=== PATIENT | male | born 1950 | race Caucasian/White ===

== ENCOUNTER 2016-11-15 10:15 | Emergency (ER) | payer MEDICARE, OTHER ==
[~2016-11-15] VITALS: Ht 182.9 cm; Wt 58.6 kg
[~2016-11-15 10:15] MED LIST: ROBA750T3 PO; TYLCOD5S PO
[2016-11-15 10:25] VITALS: BP 134/81; PULSE 68; RESP 16; TEMP 98.3; O2SAT 97
[2016-11-15 10:30] VITALS: BP 134/81; PULSE 69; RESP 14; O2SAT 97
--- NOTE | 2016-11-15 10:42 | PD ---
HPI Chief Complaint: shortness of breath, chest pain Time Seen by Provider: 10:42 Travel History International Travel<30 days: No Contact w/Intl Traveler<30days: No Traveled to known affect area: No History of Present Illness HPI 66-year-old male came to the emergency room with history of right sided chest pain that is pleuritic in nature. Patient says he feels short of breath and every time he takes a deep breath the pain gets worse. The pain is sharp in nature. Patient has history of COPD and has oxygen at home. He says he's been using it continuously over past 2 weeks. No history of syncopal episode or radiation of the pain. His symptoms have been going on for past couple days. His vital signs were relatively stable. [facility] Past Medical History Narrative Medical List of his home medications reviewed from the nursing note. Immunizations Current: Yes Past Surgical History Other Surgery: Yes (ESOPHAGEAL STRICTS) Social History Alcohol Use: No Tobacco Use: Yes (2 PPD) Substance Use: Yes (MARIJUANA) Allergies-Medications (Allergen,Severity, Reaction): Coded Allergies: No Known Allergies (Unverified , 11/15/16) Comments No known drug allergies. Reported Meds & Prescriptions Reported Meds & Active Scripts Active Ventolin Hfa 18 GM Inh (Albuterol Sulfate) 90 Mcg/Act Aer 2 Puff INH Q4-6H PRN Prednisone 20 Mg Tab 20 Mg PO BID 5 Days Narrative Medication List of his own medications reviewed from the nursing note Review of Systems Except as stated in HPI: all other systems reviewed are Neg Physical Exam Narrative GENERAL: Awake, alert, anxious, moderate distress SKIN: Focused skin assessment warm/dry. HEAD: Atraumatic. Normocephalic. EYES: Pupils equal and round. No scleral icterus. No injection or drainage. ENT: No nasal bleeding or discharge. Mucous membranes pink and moist. NECK: Trachea midline. No JVD. CARDIOVASCULAR: Regular rate and rhythm. No murmur appreciated. RESPIRATORY: No accessory muscle use. Coarse crackles bilaterally GASTROINTESTINAL: Abdomen soft, non-tender, nondistended. Hepatic and splenic margins not palpable. MUSCULOSKELETAL: No obvious deformities. No clubbing. No cyanosis. No edema. NEUROLOGICAL: Awake and alert. No obvious cranial nerve deficits. Motor grossly within normal limits. Normal speech. PSYCHIATRIC: Appropriate mood and affect; insight and judgment normal. Data Data Last Documented VS Vital Signs Date Time Temp Pulse Resp B/P Pulse Ox O2 Delivery O2 Flow Rate FiO2 11/15/16 11:45 16 97 Nasal Cannula 2 11/15/16 11:45 88 133/82 11/15/16 10:25 98.3 Orders Complete Blood Count With Diff (11/15/16 10:46) Basic Metabolic Panel (Bmp) (11/15/16 10:46) B-Type Natriuretic Peptide (11/15/16 10:46) Prothrombin Time / Inr (Pt) (11/15/16 10:46) Magnesium (Mg) (11/15/16 10:46) Troponin I (11/15/16 10:46) Iv Access Insert/Monitor (11/15/16 10:46) Electrocardiogram (11/15/16 10:46) Ecg Monitoring (11/15/16 10:46) Oximetry (11/15/16 10:46) Oxygen Administration (11/15/16 10:46) Chest, Single Ap (11/15/16 10:46) Sodium Chloride 0.9% Flush (Ns Flush) (11/15/16 11:00) Methylprednisolone So Succ Inj (Solumedr (11/15/16 11:00) Albuterol-Ipratropium Neb (Duoneb Neb) (11/15/16 11:00) Ct Pulmonary Angiogram (11/15/16 ) Iohexol 350 Inj (Omnipaque 350 Inj) (11/15/16 12:41) Albuterol Neb (Albuterol Neb) (11/15/16 13:15) Labs Laboratory Tests Test 11/15/16 10:40 White Blood Count 11.1 TH/MM3 Red Blood Count 5.97 MIL/MM3 Hemoglobin 13.1 GM/DL Hematocrit 41.4 % Mean Corpuscular Volume 69.3 FL Mean Corpuscular Hemoglobin 21.9 PG Mean Corpuscular Hemoglobin 31.7 % Concent Red Cell Distribution Width 15.5 % Platelet Count 260 TH/MM3 Mean Platelet Volume 9.1 FL Neutrophils (%) (Auto) 76.7 % Lymphocytes (%) (Auto) 13.6 % Monocytes (%) (Auto) 7.4 % Eosinophils (%) (Auto) 2.1 % Basophils (%) (Auto) 0.2 % Neutrophils # (Auto) 8.5 TH/MM3 Lymphocytes # (Auto) 1.5 TH/MM3 Monocytes # (Auto) 0.8 TH/MM3 Eosinophils # (Auto) 0.2 TH/MM3 Basophils # (Auto) 0.0 TH/MM3 CBC Comment AUTO DIFF Differential Comment AUTO DIFF CONFIRMED Platelet Estimate NORMAL Platelet Morphology Comment ENLARGED Ovalocytes 1+ Acanthocytes OCC Prothrombin Time 11.7 SEC Prothromb Time International 1.1 RATIO Ratio Sodium Level 139 MEQ/L Potassium Level 5.0 MEQ/L Chloride Level 106 MEQ/L Carbon Dioxide Level 28.8 MEQ/L Anion Gap 4 MEQ/L Blood Urea Nitrogen 11 MG/DL Creatinine 0.76 MG/DL Estimat Glomerular Filtration 102 ML/MIN Rate Random Glucose 88 MG/DL Calcium Level 8.7 MG/DL Magnesium Level 2.1 MG/DL Troponin I LESS THAN 0.02 NG/ML B-Type Natriuretic Peptide 16 PG/ML [facility] Medical Decision Making Medical Screen Exam Complete: Yes Emergency Medical Condition: Yes Medical Record Reviewed: Yes Interpretation(s) Twelve-lead EKG was reviewed by me. Normal sinus rhythm, normal axis, nonspecific ST-T wave changes. Heart rate of 68 bpm. Differential Diagnosis PE, pneumonia, pneumothorax, COPD exacerbation Narrative Course 1:17 PM blood test results of back and within normal limit. I had ordered a CT pulmonary angiogram of the chest which does not show any PE. Extensive COPD. It also shows some lung nodule. Patient will be discharged home. He was given 3 duo nebs initially along with Solu-Medrol and Toradol. Get 2 albuterol nebulizers in addition before discharge. He still continues to smoke and he has been given advice not to smoke. Procedures EKG Prior to Arrival: No Diagnosis Primary Impression: COPD exacerbation Additional Impressions: Chest pain Qualified Code: R07.9 - Chest pain, unspecified type Lung nodule Needs smoking cessation education Referrals: Primary Care Physician 2 days Additional Instructions: Please return to the ER if the condition worsens or any other new concerns. Use the inhaler 2 puffs each time every 4 hours till symptoms subside. Take the medication as per the prescription direction. You have a lung nodule that requires a repeat CAT scan in 6 months. Follow-up with your primary care. Med/Other Pt SpecificInfo: Prescription(s) given Scripts Albuterol 18 GM Inh (Ventolin Hfa 18 GM Inh)90 Mcg/Act Aer2 Puff INH Q4-6H PRN ( SHORTNESS OF BREATH) #1 INHALER Ref 0 Prov:Derrick De La Cruz MD 11/15/16 Prednisone 20 Mg Tab20 Mg PO BID 5 Days Ref 0 Prov:Derrick De La Cruz MD 11/15/16 Disposition: 01 DISCHARGE HOME Condition: Stable Derrick De La Cruz MD November 15, 2016 10:42 Condition: Stable Derrick De La Cruz MD November 15, 2016 10:42
[2016-11-15] MEDS ORDERED: methylPREDNISolone SOD SUCC 125 MG/2 ML VIAL IVP ONE (11:00)
[2016-11-15] MEDS ORDERED: SODIUM CHLORIDE 0.9% FLUSH 10 ML FLUSH IVF PRN (11:00)
[2016-11-15] MEDS: RESP: ALBUTEROL 2.5 MG/IPRATROPIUM 0.5 MG NEB (SCH) INH ×2 (11:18→11:26)
--- NOTE | 2016-11-15 11:21 | RADRPT ---
EXAM DATE/TIME: 11/15/2016 11:03 [facility] COMPARISON: CHEST SINGLE AP, October 18, 2015, 4:01. INDICATIONS : Short of breath, no chest pain, smoker MEDICAL HISTORY : Chronic obstructive pulmonary disease. SURGICAL HISTORY : None. ENCOUNTER: Initial ACUITY: 1 day PAIN SCORE: 0/10 LOCATION: Bilateral chest FINDINGS: There is mild primarily central interstitial thickening, left worse than right which appears fairly s table. Slight scarring or atelectasis present at the left lung base. There is no evidence of airspace infiltrate or pleural effusion. Cardiac contours are grossly stable. Fairly severe hyperinflation is unchanged. CONCLUSION: Emphysema and chronic interstitial disease changes. No definite acute disease Jone Mcneil MD on November 15, 2016 at 11:18 Board Certified Radiologist. This report was verified electronically.
[2016-11-15 11:26] LABS: AUTOMATED NEUTROPHIL # 8.5 TH/MM3 (1.8-7.7); BASOPHIL % 0.2 % (0.0-2.0); EOSINOPHIL # 0.2 TH/MM3 (0-0.4); EOSINOPHIL % 2.1 % (0.0-4.0); HEMATOCRIT 41.4 % (39.0-51.0); LYMPH % 13.6 % (9.0-44.0); LYMPHOCYTE # 1.5 TH/MM3 (1.0-4.8); MEAN CELL VOLUME 69.3 FL (80.0-100.0); MEAN CORPUSCULAR HEMOGLOBIN 21.9 PG (27.0-34.0); MEAN CORPUSCULAR HGB CONC 31.7 % (32.0-36.0); MONO % 7.4 % (0.0-8.0); NEUT % 76.7 % (16.0-70.0); PLATELET COUNT 260 TH/MM3 (150-450); RED BLOOD COUNT 5.97 MIL/MM3 (4.50-5.90); RED CELL DISTRIBUTION WIDTH 15.5 % (11.6-17.2); WHITE BLOOD COUNT 11.1 TH/MM3 (4.0-11.0)
[2016-11-15 11:27] LABS: HEMO FLAGS AUTO DIFF
[2016-11-15 11:31] LABS: INTERNATIONAL NORMALIZED RATIO 1.1 RATIO; PROTHROMBIN TIME - PATIENT 11.7 SEC (9.8-11.6)
[2016-11-15 11:42] LABS: ANION GAP 4 MEQ/L (5-15); BICARBONATE 28.8 MEQ/L (21.0-32.0); BLOOD UREA NITROGEN 11 MG/DL (7-18); CHLORIDE 106 MEQ/L (98-107); GLOMERULAR FILTRATION RATE 102 ML/MIN (>89); MAGNESIUM 2.1 MG/DL (1.5-2.5); SODIUM (NA) 139 MEQ/L (136-145)
[2016-11-15 11:45] VITALS: BP 133/82; PULSE 88; RESP 14; O2SAT 97
[2016-11-15 12:04] LABS: ACANTHOCYTES OCC (NORMAL); OVALOCYTES 1+ (NORMAL); PLATELET ESTIMATE SMEAR NORMAL (NORMAL); PLATELET MORPHOLOGY ENLARGED (NORMAL); SCAN/DIFF AUTO DIFF CONFIRMED
[2016-11-15] MEDS ORDERED: IOHEXOL 350 MG/ML 10 ML VIAL (for RAD DIAG) IV ONE (12:41)
--- NOTE | 2016-11-15 13:08 | RADRPT ---
EXAM DATE/TIME: 11/15/2016 12:40 [facility] COMPARISON: No previous studies available for comparison. INDICATIONS : Left posterior chest pain for four days. IV CONTRAST: 50 cc Omnipaque 350 (iohexol) IV RADIATION DOSE: 12.03 CTDIvol (mGy) MEDICAL HISTORY : esophageal stricture SURGICAL HISTORY : None. ENCOUNTER: Initial ACUITY: 4 - 6 days PAIN SCALE: 7/10 LOCATION: Left chest TECHNIQUE: Volumetric scanning of the chest was performed using a pulmonary embolism protocol MIP images were re constructed. Using automated exposure control and adjustment of the mA and/or kV according to patien t size, radiation dose was kept as low as reasonably achievable to obtain optimal diagnostic quality images. FINDINGS: The examination is of good diagnostic quality. The pulmonary circulation is widely patent. No pulmona ry embolus is identified. The heart is normal in size. The ascending aorta is at the upper limits of normal in size at 3.4 cm. The arch is at the upper limits of normal in size a 2.8 cm. There is no pericardial pleural effusion. No significant hilar or mediastinal adenopathy is seen. Imaging through the pulmonary parenchyma demonstrates advanced COPD changes. There are 2 granulomatou s calcifications evident within the right middle lobe. The largest of these is seen inferiorly and me asures 5 mm. Examination of the left lung demonstrates a 7 mm soft tissue nodule in the posterior asp ect of the left lower lobe. This is indeterminate in appearance by CT imaging. Followup examination i n 6 months to insure stability would be warranted. The limited portions of upper abdomen visualized demonstrate a hiatal hernia but otherwise unremarkab le. CONCLUSION: 1. No pulmonary embolus is identified. 2. There are 2 calcified granuloma in the right middle lobe the largest measures 5 mm. 3. There is a 7 mm soft tissue nodule in the posterior aspect of the left lower lobe followup CT scan in 6 months to document stability of this is warranted. 4. Advanced COPD changes. Miki Kirkpatrick MD on November 15, 2016 at 12:55 Board Certified Radiologist. This report was verified electronically.
[2016-11-15] MEDS: RESP: ALBUTEROL 2.5 MG/3 ML NEB (SCH) INH ×2 (13:15→13:20)
[2016-11-15] MEDS ORDERED: PRED20 PO (13:20)
[2016-11-15] MEDS ORDERED: VENTAER INH (13:20)
--- NOTE | 2016-11-15 16:32 | EKG ---
Date Performed: 11/15/2016 Time Performed: 10:39:33 PTAGE: 66 years EKG: Sinus rhythm POSSIBLE RIGHT VENTRICULAR CONDUCTION DELAY BORDERLINE ECG NO PREVIOUS TRACING DOCTOR: Marcos Valles Interpretating Date/Time 11/15/2016 16:30:34
== END 2016-11-15 14:05 | disposition home or self-care (01) ==
LOC: NEPC 10:15
DX: J44.1 Chronic obstructive pulmonary disease with (acute) exacerbation (principal); R07.9 Chest pain, unspecified; R91.1 Solitary pulmonary nodule; F17.210 Nicotine dependence, cigarettes, uncomplicated; R06.02 Shortness of breath; Z79.899 Other long term (current) drug therapy
CPT/HCPCS: 71010; 71275; 80048; 83735; 83880; 84484; 85025; 85610; 93005; 99285; Q9967

== ENCOUNTER 2017-06-02 07:05 | Emergency (ER) | payer OTHER ==
[~2017-06-02] VITALS: Ht 182.9 cm; Wt 60.0 kg
[~2017-06-02 07:05] MED LIST changes: +PRED20 PO; -ROBA750T3 PO; -TYLCOD5S PO; +VENTAER INH
[2017-06-02 07:06] VITALS: BP 131/70; PULSE 95; RESP 20; TEMP 97.7; O2SAT 93
[2017-06-02 07:17] VITALS: BP 136/90; PULSE 93; RESP 30; TEMP 98.1; O2SAT 96
[2017-06-02] MEDS ORDERED: PRED10 PO (07:25)
[2017-06-02] MEDS ORDERED: ALBU.5I NEB (07:27)
[2017-06-02] MEDS ORDERED: SODIUM CHLOR 0.9% 1000 ML INJ 1,000 ML IV ONE (07:44)
[2017-06-02] MEDS ORDERED: SODIUM CHLORIDE 0.9% FLUSH 10 ML FLUSH IVF PRN (07:45)
[2017-06-02] MEDS ORDERED: ONDANSETRON HCL 4 MG/2 ML VIAL IVP ONE (07:45)
[2017-06-02 08:15] LABS: AUTOMATED NEUTROPHIL # 9.5 TH/MM3 (1.8-7.7); BASOPHIL # 0.1 TH/MM3 (0-0.2); BASOPHIL % 0.5 % (0.0-2.0); EOSINOPHIL # 0.2 TH/MM3 (0-0.4); EOSINOPHIL % 1.8 % (0.0-4.0); HEMO FLAGS DIFF FINAL; LYMPHOCYTE # 1.8 TH/MM3 (1.0-4.8); MEAN CELL VOLUME 70.2 FL (80.0-100.0); MEAN CORPUSCULAR HEMOGLOBIN 22.9 PG (27.0-34.0); MEAN CORPUSCULAR HGB CONC 32.6 % (32.0-36.0); MONO % 7.9 % (0.0-8.0); NEUT % 75.8 % (16.0-70.0); PLATELET COUNT 289 TH/MM3 (150-450); RED BLOOD COUNT 6.12 MIL/MM3 (4.50-5.90); RED CELL DISTRIBUTION WIDTH 15.3 % (11.6-17.2); WHITE BLOOD COUNT 12.5 TH/MM3 (4.0-11.0)
[2017-06-02 08:16] VITALS: O2SAT 96
[2017-06-02 08:24] LABS: PROTHROMBIN TIME - PATIENT 11.5 SEC (9.8-11.6)
[2017-06-02] MEDS ORDERED: RESP: ALBUTEROL 2.5 MG/IPRATROPIUM 0.5 MG NEB (SCH) NEB ONE (08:30)
[2017-06-02 08:42] LABS: ALT (GPT) 20 U/L (12-78); ANION GAP 9 MEQ/L (5-15); AST (GOT) 13 U/L (15-37); BICARBONATE 29.3 MEQ/L (21.0-32.0); BLOOD UREA NITROGEN 11 MG/DL (7-18); CHLORIDE 96 MEQ/L (98-107); GLOMERULAR FILTRATION RATE 94 ML/MIN (>89); POTASSIUM 3.7 MEQ/L (3.5-5.1); SODIUM (NA) 134 MEQ/L (136-145)
[2017-06-02 08:46] LABS: ALKALINE PHOSPHATASE 67 U/L (45-117); TOTAL BILIRUBIN ADULT 0.7 MG/DL (0.2-1.0)
[2017-06-02 08:56] VITALS: O2SAT 98
--- NOTE | 2017-06-02 09:45 | RADRPT ---
EXAM DATE/TIME: 06/02/2017 08:04 [facility] COMPARISON: No previous studies available for comparison. INDICATIONS : Right lateral rib pain from coughing, short of breath. MEDICAL HISTORY : Chronic obstructive pulmonary disease. SURGICAL HISTORY : None. ENCOUNTER: Initial ACUITY: 2 days PAIN SCORE: 10/10 LOCATION: Right ribs. FINDINGS: There are acute fractures involving the right ninth and probably the right 10th ribs laterally. No pn eumothorax is noted. Emphysematous changes are noted bilaterally. Degenerative changes and scoliosis of the thoracolumbar spine are noted. Mild compression deformity involving L2 is noted and is indeter minate in age. CONCLUSION: 1. Acute fractures involving the right ninth and probably the right 10th ribs laterally. 2. Mild compression deformity involving L2 of indeterminate age. 3. Degenerative changes and scoliosis of the thoracolumbar spine. 4. Emphysematous changes bilaterally. Jean Pierre Chavez MD on June 02, 2017 at 9:39 Board Certified Radiologist. This report was verified electronically.
[2017-06-02] MEDS ORDERED: HYDR-3516 PO (10:27)
--- NOTE | 2017-06-02 10:27 | PD ---
HPI Chief Complaint: Medical Clearance Time Seen by Provider: 07:34 Travel History International Travel<30 days: No Contact w/Intl Traveler<30days: No Traveled to known affect area: No History of Present Illness HPI Patient is a 66-year-old male comes in with multiple medical complaints. He says that he had a coughing fit Tuesday and he felt a pop on his right side. He says he figured he bruised his ribs like he did several months ago on the left. He says that he took some of his Robaxin to help with the pain, but then he started to feel dizzy and nauseous and chills. He says this is been going on for the past couple days, but overall today's feeling better. He is worried he is having a reaction to the Robaxin. He denies any chest pain. He says he has constant shortness of breath in the past week has had to use his oxygen 24 hours a day. He denies fever. He denies passing out. PFSH Past Medical History COPD: Yes Respiratory: Yes Immunizations Current: Yes Past Surgical History Other Surgery: Yes (ESOPHAGEAL STRICTS) Social History Alcohol Use: No Tobacco Use: Yes Substance Use: No Allergies-Medications (Allergen,Severity, Reaction): Coded Allergies: No Known Allergies (Unverified Adverse Reaction, Unknown, 06/02/17) Reported Meds & Prescriptions Reported Meds & Active Scripts Active Magnesium Citrate Liq (Magnesium Citrate) 300 Ml Liq 300 Ml PO ONCE Zofran Odt (Ondansetron Odt) 4 Mg Tab 4 Mg SL Q6HR PRN Hydrocodone-Acetaminophen 5-325 mg Tab 1 Tab PO Q4H PRN Ventolin Hfa 18 GM Inh (Albuterol Sulfate) 90 Mcg/Act Aer 2 Puff INH Q4-6H PRN Reported Albuterol Neb (Albuterol Sulfate) 2.5 Mg/0.5 Ml Neb 2.5 Mg NEB Q4HR NEB PRN Note: The Albuterol Sulfate Inhalation Solution is concentrated and must be diluted. Read complete instructions carefully before using. Prednisone 10 Mg Tab 10 Mg PO BID Review of Systems Except as stated in HPI: all other systems reviewed are Neg General / Constitutional: Positive: Chills, No: Fever Eyes: No: Blurred Vision HENT: Positive: Lightheadedness, No: Headaches Cardiovascular: No: Chest Pain or Discomfort Respiratory: Positive: Cough, Shortness of Breath Gastrointestinal: Positive: Nausea, No: Vomiting Genitourinary: No: Dysuria Musculoskeletal: No: Myalgias Skin: No Rash Neurologic: Positive: Dizziness, No: Weakness Physical Exam Narrative GENERAL: Awake and alert, in no acute distress. SKIN: Focused skin assessment warm/dry. HEAD: Atraumatic. Normocephalic. EYES: Pupils equal and round. No scleral icterus. Extraocular movements intact. ENT: Mucous membranes pink and moist. NECK: Trachea midline. No JVD. CARDIOVASCULAR: Regular rate and rhythm. No murmur appreciated. Tender to palpation of the right lateral chest wall. RESPIRATORY: No accessory muscle use. Clear to auscultation. Breath sounds equal bilaterally. GASTROINTESTINAL: Abdomen soft, non-tender, nondistended. MUSCULOSKELETAL: No obvious deformities. No clubbing. No cyanosis. No edema. NEUROLOGICAL: Awake and alert. No obvious cranial nerve deficits. Motor grossly within normal limits. Normal speech. PSYCHIATRIC: Appropriate mood and affect; insight and judgment normal. Data Data Last Documented VS Vital Signs Date Time Temp Pulse Resp B/P (MAP) Pulse Ox O2 Delivery O2 Flow Rate FiO2 06/02/17 11:02 06/02/17 08:56 98 Nasal Cannula 3.00 06/02/17 07:17 98.1 93 30 Orders Orders Electrocardiogram (06/02/17 07:44) Complete Blood Count With Diff (06/02/17 07:44) Comprehensive Metabolic Panel (06/02/17 07:44) Troponin I (06/02/17 07:44) Act Partial Throm Time (Ptt) (06/02/17 07:44) Prothrombin Time / Inr (Pt) (06/02/17 07:44) Ecg Monitoring (06/02/17 07:44) Iv Access Insert/Monitor (06/02/17 07:44) Oximetry (06/02/17 07:44) Ondansetron Inj (Zofran Inj) (06/02/17 07:45) Sodium Chloride 0.9% Flush (Ns Flush) (06/02/17 07:45) Sodium Chlor 0.9% 1000 Ml Inj (Ns 1000 M (06/02/17 07:44) Ribs, Uni (W/Exp Cxr-Min 3vw) (06/02/17 ) Albuterol-Ipratropium Neb (Duoneb Neb) (06/02/17 08:30) Resp Incentive Spirometry (06/02/17 ) Ed Discharge Order (06/02/17 10:43) Labs Laboratory Tests Test 06/02/17 07:45 White Blood Count 12.5 TH/MM3 Red Blood Count 6.12 MIL/MM3 Hemoglobin 14.0 GM/DL Hematocrit 43.0 % Mean Corpuscular Volume 70.2 FL Mean Corpuscular Hemoglobin 22.9 PG Mean Corpuscular Hemoglobin Concent 32.6 % Red Cell Distribution Width 15.3 % Platelet Count 289 TH/MM3 Mean Platelet Volume 8.8 FL Neutrophils (%) (Auto) 75.8 % Lymphocytes (%) (Auto) 14.0 % Monocytes (%) (Auto) 7.9 % Eosinophils (%) (Auto) 1.8 % Basophils (%) (Auto) 0.5 % Neutrophils # (Auto) 9.5 TH/MM3 Lymphocytes # (Auto) 1.8 TH/MM3 Monocytes # (Auto) 1.0 TH/MM3 Eosinophils # (Auto) 0.2 TH/MM3 Basophils # (Auto) 0.1 TH/MM3 CBC Comment DIFF FINAL Differential Comment Prothrombin Time 11.5 SEC Prothromb Time International Ratio 1.0 RATIO Activated Partial Thromboplast Time 28.0 SEC Blood Urea Nitrogen 11 MG/DL Creatinine 0.82 MG/DL Random Glucose 100 MG/DL Total Protein 7.6 GM/DL Albumin 3.9 GM/DL Calcium Level 9.1 MG/DL Alkaline Phosphatase 67 U/L Aspartate Amino Transf (AST/SGOT) 13 U/L Alanine Aminotransferase (ALT/SGPT) 20 U/L Total Bilirubin 0.7 MG/DL Sodium Level 134 MEQ/L Potassium Level 3.7 MEQ/L Chloride Level 96 MEQ/L Carbon Dioxide Level 29.3 MEQ/L Anion Gap 9 MEQ/L Estimat Glomerular Filtration Rate 94 ML/MIN Troponin I LESS THAN 0.02 NG/ML MDM Medical Decision Making Medical Screen Exam Complete: Yes Emergency Medical Condition: Yes Medical Record Reviewed: Yes Interpretation(s) ECG shows normal sinus rhythm at 67. Incomplete right bundle-branch block. No ST elevation or depression. Differential Diagnosis Rib fracture versus pneumonia versus COPD exacerbation versus dehydration Narrative Course Patient is a 66-year-old male who comes in with multiple medical complaints. Exam shows tenderness to the right lateral chest wall. IV established, labs sent. Labs show no acute abnormalities. Chest x-ray shows fractures of his right ribs. Patient offered pain medicine, but declines this time. He'll be discharged with a prescription to take as needed. He is advised to ensure he is taking deep breaths. Given an incentive spirometer and instructed on how to use it. He was given IV fluids, Zofran, 1 DuoNeb here and reports feeling much better. He is advised follow-up with his primary care doctor. Advised to return to the ED as needed for any worsening symptoms. Last 24 hours Impressions Ribs X-Ray 06/02/17 0000 Signed Impressions: Service Date/Time: , June 02, 2017 08:04 - CONCLUSION: 1. Acute fractures involving the right ninth and probably the right 10th ribs laterally. 2. Mild compression deformity involving L2 of indeterminate age. 3. Degenerative changes and scoliosis of the thoracolumbar spine. 4. Emphysematous changes bilaterally. Jean Pierre Chavez MD Diagnosis Primary Impression: Rib fractures Qualified Codes: S22.41XA - Multiple fractures of ribs, right side, initial encounter for closed fracture Patient Instructions: General Instructions, Rib Fracture (ED) Additional Instructions: Take pain medicine as needed. Ensure you are taking deep breaths and use your incentive spirometer several times a day. Follow-up with her primary care doctor. Return to the ED as needed for any worsening symptoms. Scripts Magnesium Citrate Liq (Magnesium Citrate Liq) 300 Ml Liq 300 ML PO ONCE, #1 BOTTLE 0 Refills Prov: Marybeth Meade MD 06/02/17 Ondansetron Odt (Zofran Odt) 4 Mg Tab 4 MG SL Q6HR Y for Nausea/Vomiting, #12 TAB 0 Refills Prov: Marybeth Meade MD 06/02/17 Hydrocodone-Acetaminophen (Hydrocodone-Acetaminophen) 5-325 mg Tab 1 TAB PO Q4H Y for PAIN, #15 TAB 0 Refills Prov: Marybeth Meade MD 06/02/17 Disposition: 01 DISCHARGE HOME Condition: Stable Marybeth Meade MD Jun 02, 2017 10:27
[2017-06-02] MEDS ORDERED: MAGNSOL2 PO (10:35)
[2017-06-02] MEDS ORDERED: ZOFR4TAB3 SL (10:35)
--- NOTE | 2017-06-03 17:56 | EKG ---
Date Performed: 06/02/2017 Time Performed: 08:28:09 PTAGE: 66 years EKG: Sinus rhythm WITH SINUS ARRHYTHMIA INCOMPLETE RIGHT BUNDLE BRANCH BLOCK BORDERLINE ECG Since PREVIOUS TRACING , no significant change noted PREVIOUS TRACIN11/15/2016 10.39 DOCTOR: Thomas Eubanks Interpretating Date/Time 06/03/2017 17:55:50
== END 2017-06-02 12:05 | disposition home or self-care (01) ==
LOC: NEPE 07:05
DX: S22.41XA Multiple fractures of ribs, right side, initial encounter for closed fracture (principal); R42 Dizziness and giddiness; I49.8 Other specified cardiac arrhythmias; I45.10 Unspecified right bundle-branch block; R11.0 Nausea; M41.9 Scoliosis, unspecified; J44.9 Chronic obstructive pulmonary disease, unspecified; X58.XXXA Exposure to other specified factors, initial encounter; Z72.0 Tobacco use
CPT/HCPCS: 71101; 80053; 84484; 85025; 85610; 85730; 93005; 94664; 96361; 96374; 99285; J2405; J7030

== ENCOUNTER 2017-08-08 05:26 | Inpatient (IN) | payer OTHER, MEDICARE ==
[~2017-08-08] VITALS: Ht 182.9 cm; Wt 52.6 kg
[2017-08-08] VITALS (7 sets, daily range): BP systolic 100–145; BP diastolic 61–76; PULSE 85–111; RESP 17–48; TEMP 97.9–98.6; O2SAT 97–99
[~2017-08-08 05:26] MED LIST changes: +ALBU.5I NEB; +HYDR-3516 PO; +MAGNSOL2 PO; +PRED10 PO; -PRED20 PO; +ZOFR4TAB3 SL
--- NOTE | 2017-08-08 05:36 | PD ---
HPI Chief Complaint: sob Time Seen by Provider: 05:31 Travel History International Travel<30 days: No Contact w/Intl Traveler<30days: No Traveled to known affect area: No History of Present Illness HPI Patient comes in complaining of shortness of breath and wheezing which is not improving with his home oxygen. Patient is normally on 3 L nasal cannula at home as needed. Patient continues to be an active smoker. Shortness of breath has worsened over the past 2-3 hours however the patient has had shortness of breath for the past 2-3 days. Patient currently denies any fever/runny nose/n/v /d/abdpain/backpain/palpitations/.....alleviated with nebulizer treatments given by ems....rest of history limited due to clinical condition/severity of sob. all:nkda pmhx: esophag strictures and copd, on home oxygen and daily oral prednisone...patient denies ever been intubated. PFSH Past Medical History COPD: Yes Respiratory: Yes Immunizations Current: Yes Past Surgical History Other Surgery: Yes (ESOPHAGEAL STRICTS) Social History Alcohol Use: No Tobacco Use: Yes Substance Use: No Allergies-Medications (Allergen,Severity, Reaction): Coded Allergies: No Known Allergies (Unverified Adverse Reaction, Unknown, 06/02/17) Reported Meds & Prescriptions Reported Meds & Active Scripts Active Ventolin Hfa 18 GM Inh (Albuterol Sulfate) 90 Mcg/Act Aer 2 Puff INH Q4-6H PRN Reported Breo Ellipta Inh (Fluticasone/Vilanterol) 100-25 Mcg/Act Inh Unknown Dose INH DAILY Use daily at the same time. Albuterol Neb (Albuterol Sulfate) 2.5 Mg/0.5 Ml Neb 2.5 Mg NEB Q4HR NEB PRN Note: The Albuterol Sulfate Inhalation Solution is concentrated and must be diluted. Read complete instructions carefully before using. Prednisone 10 Mg Tab 10 Mg PO BID Review of Systems ROS Limitations: Clinical Condition Except as stated in HPI: all other systems reviewed are Neg General / Constitutional: No: Fever Eyes: No: Visual changes HENT: No: Headaches Cardiovascular: No: Chest Pain or Discomfort Respiratory: Positive: Cough, Shortness of Breath, Wheezing Gastrointestinal: No: Abdominal Pain Genitourinary: No: Dysuria Musculoskeletal: No: Pain Skin: No Rash Neurologic: No: Weakness Psychiatric: No: Depression Endocrine: No: Polydipsia Hematologic/Lymphatic: No: Easy Bruising Physical Exam Exam Limitations: Clinical Condition Narrative GENERAL: SKIN: Warm and dry. HEAD: Atraumatic. Normocephalic. EYES: Pupils equal and round. No scleral icterus. No injection or drainage. ENT: No nasal bleeding or discharge. Mucous membranes pink and moist. NECK: Trachea midline. No JVD. CARDIOVASCULAR: tachycardic rate and regular rhythm. RESPIRATORY: accessory muscle use. decreased tv, wheezes bilaterally, tripoding , 1 word dyspnea GASTROINTESTINAL: Abdomen soft, non-tender, nondistended. MUSCULOSKELETAL: Extremities without clubbing, cyanosis, or edema. No obvious deformities. NEUROLOGICAL: Awake and alert. No obvious cranial nerve deficits. Motor grossly within normal limits. Five out of 5 muscle strength in the arms and legs. Normal speech. PSYCHIATRIC: Appropriate mood and affect; insight and judgment normal. Data Data Last Documented VS Vital Signs Date Time Temp Pulse Resp B/P (MAP) Pulse Ox O2 Delivery O2 Flow Rate FiO2 08/08/17 05:40 98 Nasal Cannula 5.00 08/08/17 05:29 98.2 111 48 145/76 (99) Orders Orders Complete Blood Count With Diff (08/08/17 05:31) Comprehensive Metabolic Panel (08/08/17 05:31) B-Type Natriuretic Peptide (08/08/17 05:31) Act Partial Throm Time (Ptt) (08/08/17 05:31) Prothrombin Time / Inr (Pt) (08/08/17 05:31) Ckmb (Isoenzyme) Profile (08/08/17 05:31) Troponin I (08/08/17 05:31) Arterial Blood Gas (Abg) (08/08/17 05:31) Influenzae A/B Antigen (08/08/17 05:31) Iv Access Insert/Monitor (08/08/17 05:31) Electrocardiogram (08/08/17 05:31) Ecg Monitoring (08/08/17 05:31) Oximetry (08/08/17 05:31) Oxygen Administration (08/08/17 05:31) Chest, Single Ap (08/08/17 05:31) Albuterol Neb (Albuterol Neb) (08/08/17 05:45) Magnesium Sulfate 1 Gm Premix (Magnesium (08/08/17 05:45) Azithromycin Inj (Zithromax Inj) (08/08/17 05:45) Blood Culture (08/08/17 05:49) Labs Laboratory Tests Test 08/08/17 05:35 08/08/17 05:40 Blood Gas Puncture Site RT RADIAL Blood Gas Patient Temperature 98.6 Blood Gas HCO3 25 mmol/L Blood Gas Base Excess 0.2 mmol/L Blood Gas Oxygen Saturation 96 % Arterial Blood pH 7.36 Arterial Blood Partial Pressure CO2 45 mmHg Arterial Blood Partial Pressure O2 139 mmHG Arterial Blood Oxygen Content 18.2 Vol % Arterial Blood Carboxyhemoglobin 2.6 % Arterial Blood Methemoglobin 0.7 % Blood Gas Hemoglobin 13.4 G/DL Oxygen Delivery Device NASAL CANNULA Blood Gas Liter Flow 5 L/M MDM Medical Decision Making Medical Screen Exam Complete: Yes Emergency Medical Condition: Yes Medical Record Reviewed: Yes Differential Diagnosis copd exacer v pna v pleural effusion v ptx v anemia v atypical stemi v nonstemi Narrative Course neg flu test, cxr neg for pna/ptx/pleural effusion.... Critical Care Narrative CRITICAL CARE NOTE: With evaluation of the patient, labs, EKG, receipt of radiologic studies, administration of medications, reevaluation the patient and discussion of the patient with the admitting physicians, the total critical care time was [45] minutes. Time to perform other separately billable procedures was not included in the critical care time. Diagnosis Primary Impression: moderate to severe copd exacerbation with hypoxemia Admitting Information Admitting Physician Requests: Observation Frederick Gudino MD Aug 08, 2017 05:36
[2017-08-08] MEDS ORDERED: FLUT1INH INH (05:39)
[2017-08-08] MEDS ORDERED: MAGNESIUM SULFATE 1 GM PREMIX 100 ML IV ONE (05:45)
[2017-08-08] MEDS ORDERED: methylPREDNISolone SOD SUCC 125 MG/2 ML VIAL IV PUSH ONE (05:45)
[2017-08-08] MEDS ORDERED: AZITHROMYCIN INJ 500 MG in SODIUM CHLOR 0.9% 250 ML INJ 250 ML IV ONE (05:45)
[2017-08-08 05:58] LABS: AUTOMATED NEUTROPHIL # 4.7 TH/MM3 (1.8-7.7); BASOPHIL # 0.1 TH/MM3 (0-0.2); BASOPHIL % 0.8 % (0.0-2.0); EOSINOPHIL # 0.1 TH/MM3 (0-0.4); EOSINOPHIL % 1.4 % (0.0-4.0); HEMATOCRIT 39.9 % (39.0-51.0); LYMPH % 23.7 % (9.0-44.0); MEAN CELL VOLUME 69.9 FL (80.0-100.0); MEAN CORPUSCULAR HEMOGLOBIN 22.8 PG (27.0-34.0); MEAN CORPUSCULAR HGB CONC 32.6 % (32.0-36.0); MEAN PLATELET VOLUME 8.9 FL (7.0-11.0); MONO % 17.2 % (0.0-8.0); MONOCYTE # 1.4 TH/MM3 (0-0.9); NEUT % 56.9 % (16.0-70.0); PLATELET COUNT 288 TH/MM3 (150-450); RED BLOOD COUNT 5.71 MIL/MM3 (4.50-5.90); RED CELL DISTRIBUTION WIDTH 16.7 % (11.6-17.2); WHITE BLOOD COUNT 8.3 TH/MM3 (4.0-11.0)
[2017-08-08] MEDS: RESP: ALBUTEROL 2.5 MG/3 ML NEB (SCH) INH ×2 (05:59→06:00)
[2017-08-08 06:07] LABS: INTERNATIONAL NORMALIZED RATIO 1.1 RATIO; PROTHROMBIN TIME - PATIENT 11.5 SEC (9.8-11.6)
[2017-08-08 06:23] LABS: ALBUMIN 3.1 GM/DL (3.4-5.0); ALKALINE PHOSPHATASE 61 U/L (45-117); ALT (GPT) 20 U/L (12-78); AST (GOT) 29 U/L (15-37); BICARBONATE 24.9 MEQ/L (21.0-32.0); BLOOD UREA NITROGEN 13 MG/DL (7-18); CALCIUM 7.9 MG/DL (8.5-10.1); CHLORIDE 109 MEQ/L (98-107); CREATININE 0.71 MG/DL (0.60-1.30); GLOMERULAR FILTRATION RATE 111 ML/MIN (>89); GLUCOSE,RANDOM 91 MG/DL (74-106); SODIUM (NA) 140 MEQ/L (136-145); TOTAL BILIRUBIN ADULT 0.5 MG/DL (0.2-1.0); TOTAL PROTEIN 6.5 GM/DL (6.4-8.2); TROPONIN I LESS THAN 0.02 NG/ML (0.02-0.05)
--- NOTE | 2017-08-08 06:27 | RADRPT ---
EXAM DATE/TIME: 08/08/2017 05:50 [facility] COMPARISON: CHEST SINGLE AP, November 15, 2016, 11:03. INDICATIONS : Short of breath. MEDICAL HISTORY : Chronic obstructive pulmonary disease. SURGICAL HISTORY : None. ENCOUNTER: Initial ACUITY: 1 day PAIN SCORE: 0/10 LOCATION: Bilateral chest FINDINGS: Hyperaerated lungs similar to prior chest x-ray. The heart is normal in size. Central bronchopulmon og markings well delineated. No evidence of pneumothorax or infiltrate. CONCLUSION: No acute findings. Severe emphysema. A Fabrizio Fierro MD on August 08, 2017 at 6:23 Board Certified Radiologist. This report was verified electronically.
[2017-08-08] MEDS ORDERED: RESP: ALBUTEROL 2.5 MG/IPRATROPIUM 0.5 MG NEB (PRN) NEB (07:00)
[2017-08-08] MEDS ORDERED: ONDANSETRON HCL 4 MG/2 ML VIAL IVP PRN (07:00)
[2017-08-08] MEDS ORDERED: BISACODYL 10 MG SUPP RECTAL PRN (07:00)
[2017-08-08] MEDS ORDERED: SENNOSIDES 8.6 MG TAB PO PRN (07:00)
[2017-08-08] MEDS ORDERED: NALOXONE HCL 0.4 MG/ML AMP IV PUSH PRN (07:00)
[2017-08-08] MEDS ORDERED: ACETAMINOPHEN 325 MG TAB PO PRN (07:00)
[2017-08-08] MEDS ORDERED: MAGNESIUM HYDROXIDE SUSP 30 ML CUP PO PRN (07:00)
[2017-08-08] MEDS ORDERED: LACTULOSE SYRUP 20 GM/30 ML CUP PO PRN (07:00)
[2017-08-08] MEDS: HEPARIN SODIUM - SQ 10,000 UNITS/ML VIAL SQ SCH ×2 (08:03→14:57)
[2017-08-08] MEDS: SODIUM CHLORIDE 0.9% FLUSH 10 ML FLUSH IV FLUSH SCH ×2 (10:00→21:58)
[2017-08-08] MEDS: RESP: ALBUTEROL 2.5 MG/IPRATROPIUM 0.5 MG NEB (SCH) NEB ×3 (10:00→20:48)
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
[2017-08-08] MEDS: methylPREDNISolone SOD SUCC 40 MG/1 ML VIAL IV PUSH SCH ×2 (12:02→17:54)
[2017-08-08] MEDS ORDERED: IOHEXOL 350 MG/ML 10 ML VIAL (for RAD DIAG) IVCONTRAST ONE (19:33)
--- NOTE | 2017-08-08 19:43 | EKG ---
Date Performed: 08/08/2017 Time Performed: 06:21:29 PTAGE: 66 years EKG: Sinus rhythm POSSIBLE RIGHT ATRIAL ENLARGEMENT POSSIBLE LEFT ATRIAL ENLARGEMENT INCOMPLETE RIGHT BUNDLE BRANCH BL OCK BORDERLINE ECG PREVIOUS TRACING : 06/02/2017 08.28 Since previous tracing, no significant change noted DOCTOR: Palak Arreaga Interpretating Date/Time 08/08/2017 19:41:12
--- NOTE | 2017-08-08 19:57 | RADRPT ---
EXAM DATE/TIME: 08/08/2017 19:15 [facility] COMPARISON: CT PULMONARY ANGIOGRAM, November 15, 2016, 12:40. INDICATIONS : Abnormal prior CT, shortness of breath. IV CONTRAST: 65 cc Omnipaque 350 (iohexol) IV RADIATION DOSE: 7.61 CTDIvol (mGy) ; Patient positioning MEDICAL HISTORY : Chronic obstructive pulmonary disease. SURGICAL HISTORY : None. ENCOUNTER: Initial ACUITY: 1 day PAIN SCALE: 0/10 LOCATION: Bilateral chest TECHNIQUE: Volumetric scanning of the chest was performed using a pulmonary embolism protocol MIP images were re constructed. Using automated exposure control and adjustment of the mA and/or kV according to patien t size, radiation dose was kept as low as reasonably achievable to obtain optimal diagnostic quality images. DICOM format image data is available electronically for review and comparison. Follow-up recommendations for detected pulmonary nodules are based at a minimum on nodule size and pa tient risk factors according to Fleischner Society Guidelines. FINDINGS: No filling defects to suggest pulmonary embolus. No effusion or adenopathy. Underlying severe emphysema. Previous left lower lobe nodule has resolved. Stable calcified granuloma in the right middle lobe. No acute findings in the upper abdomen. CONCLUSION: 1. Negative for pulmonary embolus. 2. Severe emphysema. Conrad Phelps MD on August 08, 2017 at 19:50 Board Certified Radiologist. This report was verified electronically.
[2017-08-08] MEDS: guaiFENesin E.R. 600 MG TAB PO SCH (21:56)
[2017-08-09] VITALS (9 sets, daily range): BP systolic 91–137; BP diastolic 55–87; PULSE 72–92; RESP 18–22; TEMP 97.3–98.1; O2SAT 92–98
[2017-08-09] MEDS: SODIUM CHLORIDE 0.9% FLUSH 10 ML FLUSH IV FLUSH PRN ×2 (00:24→05:24)
[2017-08-09] MEDS: HEPARIN SODIUM - SQ 10,000 UNITS/ML VIAL SQ SCH ×4 (00:24→23:28)
[2017-08-09] MEDS: methylPREDNISolone SOD SUCC 40 MG/1 ML VIAL IV PUSH SCH ×5 (00:24→23:29)
[2017-08-09] MEDS: RESP: ALBUTEROL 2.5 MG/IPRATROPIUM 0.5 MG NEB (SCH) NEB ×4 (04:46→20:37)
[2017-08-09 08:55] LABS: HEMATOCRIT 39.8 % (39.0-51.0); HEMOGLOBIN 12.7 GM/DL (13.0-17.0); LYMPH % 4.7 % (9.0-44.0); LYMPHOCYTE # 0.4 TH/MM3 (1.0-4.8); MEAN CELL VOLUME 69.5 FL (80.0-100.0); MEAN CORPUSCULAR HEMOGLOBIN 22.2 PG (27.0-34.0); MEAN CORPUSCULAR HGB CONC 31.9 % (32.0-36.0); MEAN PLATELET VOLUME 8.5 FL (7.0-11.0); MONO % 4.7 % (0.0-8.0); MONOCYTE # 0.4 TH/MM3 (0-0.9); NEUT % 90.6 % (16.0-70.0); PLATELET COUNT 250 TH/MM3 (150-450); RED BLOOD COUNT 5.72 MIL/MM3 (4.50-5.90); RED CELL DISTRIBUTION WIDTH 16.4 % (11.6-17.2); WHITE BLOOD COUNT 8.8 TH/MM3 (4.0-11.0)
[2017-08-09] MEDS: guaiFENesin E.R. 600 MG TAB PO SCH ×2 (08:58→21:02)
[2017-08-09] MEDS: SODIUM CHLORIDE 0.9% FLUSH 10 ML FLUSH IV FLUSH SCH ×2 (08:59→21:03)
[2017-08-09 09:24] LABS: BICARBONATE 27.5 MEQ/L (21.0-32.0); CREATININE 0.94 MG/DL (0.60-1.30)
--- NOTE | 2017-08-09 14:17 | HHI.PR ---
Subjective Remarks Follow-up COPD exacerbation. Patient states that he feels worse now than when he came to the hospital. He has had increasing shortness of breath. Denies chest pain. Cough is nonproductive. He becomes extremely short of breath with any exertion. Objective Vitals Vital Signs Date Time Temp Pulse Resp B/P (MAP) Pulse Ox O2 Delivery O2 Flow Rate FiO2 08/09/17 11:49 98.1 91 20 120/66 (84) 94 08/09/17 09:31 92 Nasal Cannula 2.00 08/09/17 07:41 97.7 90 20 116/64 (81) 93 08/09/17 04:47 97 Nasal Cannula 3.00 08/09/17 04:40 97.3 72 19 115/67 (83) 93 08/09/17 00:00 97.5 79 18 91/55 (67) 94 08/08/17 20:40 98.2 86 17 112/74 (87) 97 08/08/17 16:00 98.6 86 19 112/68 (83) 97 08/08/17 15:36 97 Nasal Cannula 3.00 I/O 08/08/17 08/08/17 08/08/17 08/09/17 08/09/17 08/09/17 07:00 15:00 23:00 07:00 15:00 23:00 Intake Total 350 ml 240 ml Output Total 400 ml Balance 350 ml -160 ml Intake Oral 240 ml IV Total 350 ml Output Urine Total 400 ml Result Diagram: 08/09/17 0824 08/09/17 0824 Imaging Last Impressions Chest X-Ray 08/08/17 0531 Signed Impressions: Service Date/Time: Tuesday, August 08, 2017 05:50 - CONCLUSION: No acute findings. Severe emphysema. Israel Fierro MD CT Angiography 08/08/17 0000 Signed Impressions: Service Date/Time: Tuesday, August 08, 2017 19:15 - CONCLUSION: 1. Negative for pulmonary embolus. 2. Severe emphysema. Conrad Phelps MD Objective Remarks General: Thin male in no acute distress. Heart: Regular rate and rhythm. No murmur. Lungs: Breathing is somewhat labored. Breath sounds are diminished bilaterally. Mild expiratory wheezes bilaterally. Abdomen: Soft, nontender, nondistended. Extremities: No lower extremity edema. Psych: Alert and oriented. Procedures None Urinary Catheter: No Vascular Central Line Catheter: No A/P Problem List: (1) Tobacco abuse ICD Code: Z72.0 - Tobacco use (2) COPD exacerbation ICD Code: J44.1 - Chronic obstructive pulmonary disease with (acute) exacerbation Status: Acute (3) Lung nodule ICD Code: R91.1 - Solitary pulmonary nodule Status: Acute Assessment and Plan 1. Acute respiratory failure secondary to COPD exacerbation: Continue supplemental oxygen. Continue bronchodilators, IV steroids. Consult pulmonology. Sherryo Ellipta on hold. Repeat ABG. 2. Tobacco abuse: Counseled to quit smoking. States that he had cut down to about one pack per day prior to this hospitalization. Add nicotine patch. 3. Lung nodule: Not seen on repeat CT pulmonary angiogram. 4. DVT prophylaxis: Heparin. Wilmer Mackenzie MD Aug 09, 2017 14:16
[2017-08-09] MEDS: NICOTINE 7 MG/24 HR PATCH T-DERMAL SCH (15:59)
[2017-08-09] MEDS: LORazepam 0.5 MG TAB PO PRN (15:59)
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
[2017-08-10] VITALS (7 sets, daily range): BP systolic 109–146; BP diastolic 60–96; PULSE 81–106; RESP 18–20; TEMP 97.5–98.7; O2SAT 92–98
[2017-08-10] MEDS: RESP: ALBUTEROL 2.5 MG/IPRATROPIUM 0.5 MG NEB (SCH) NEB ×4 (02:51→21:15)
[2017-08-10] MEDS: methylPREDNISolone SOD SUCC 40 MG/1 ML VIAL IV PUSH SCH ×4 (06:00→23:28)
[2017-08-10] MEDS: HEPARIN SODIUM - SQ 10,000 UNITS/ML VIAL SQ SCH ×3 (06:00→23:28)
[2017-08-10] MEDS: REMOVE OLD PATCH T-DERMAL SCH (09:00)
[2017-08-10] MEDS: SODIUM CHLORIDE 0.9% FLUSH 10 ML FLUSH IV FLUSH SCH ×2 (09:00→21:13)
[2017-08-10] MEDS: NICOTINE 7 MG/24 HR PATCH T-DERMAL SCH (09:37)
[2017-08-10] MEDS: guaiFENesin E.R. 600 MG TAB PO SCH ×2 (09:37→21:13)
[2017-08-10] MEDS ORDERED: INFLUENZA VIRUS VACCINE (QUADRIVALENT) 0.5 ML SYR IM ONE (10:00)
[2017-08-10] MEDS ORDERED: PNEUMOCOCCAL POLYVALENT INJ 25 MCG/0.5 ML SYR IM ONE (10:00)
[2017-08-10] MEDS ORDERED: AZITHROMYCIN 250 MG TAB PO ONE (14:30)
--- NOTE | 2017-08-10 14:38 | HHI.PR ---
Subjective Remarks Follow-up COPD exacerbation. The patient states that he feels worse today. Any exertion makes him significantly short of breath. Objective Vitals Vital Signs Date Time Temp Pulse Resp B/P (MAP) Pulse Ox O2 Delivery O2 Flow Rate FiO2 08/10/17 12:00 97.7 89 18 119/96 (104) 98 08/10/17 10:59 Nasal Cannula 3.00 08/10/17 08:00 97.5 98 18 146/60 (88) 92 08/10/17 04:00 97.6 97 20 111/64 (80) 97 08/10/17 02:52 92 Nasal Cannula 2.00 08/10/17 00:00 98.7 81 18 133/86 (102) 98 08/09/17 19:57 97.8 92 20 137/87 (104) 96 08/09/17 16:03 97.9 86 22 131/67 (88) 98 08/09/17 15:12 94 Nasal Cannula 2.50 I/O 08/09/17 08/09/17 08/09/17 08/10/17 08/10/17 08/10/17 06:59 14:59 22:59 06:59 14:59 22:59 Intake Total 240 ml 120 ml Output Total 400 ml Balance -160 ml 120 ml Intake Oral 240 ml 120 ml Output Urine Total 400 ml # Voids 3 Result Diagram: 08/09/17 0824 08/09/17 0824 Imaging Last Impressions Chest X-Ray 08/08/17 0531 Signed Impressions: Service Date/Time: Tuesday, August 08, 2017 05:50 - CONCLUSION: No acute findings. Severe emphysema. A Fabrizio Fierro MD CT Angiography 08/08/17 0000 Signed Impressions: Service Date/Time: Tuesday, August 08, 2017 19:15 - CONCLUSION: 1. Negative for pulmonary embolus. 2. Severe emphysema. Conrad Phelps MD Objective Remarks General: Thin male in no acute distress. Heart: Regular rate and rhythm. No murmur. Lungs: Breathing is somewhat labored. Breath sounds are diminished bilaterally. Mild expiratory wheezes bilaterally. Abdomen: Soft, nontender, nondistended. Extremities: No lower extremity edema. Psych: Alert and oriented. Procedures None Urinary Catheter: No Vascular Central Line Catheter: No A/P Problem List: (1) Tobacco abuse ICD Code: Z72.0 - Tobacco use (2) COPD exacerbation ICD Code: J44.1 - Chronic obstructive pulmonary disease with (acute) exacerbation Status: Acute (3) Lung nodule ICD Code: R91.1 - Solitary pulmonary nodule Status: Acute Assessment and Plan 1. Acute respiratory failure secondary to COPD exacerbation: Continue supplemental oxygen. Continue bronchodilators, IV steroids. Appreciate pulmonology recommendations. Add azithromycin. Add theophylline. 2. Tobacco abuse: Counseled to quit smoking. States that he had cut down to about one pack per day prior to this hospitalization. Continue nicotine patch. 3. Lung nodule: Not seen on repeat CT pulmonary angiogram. 4. DVT prophylaxis: Heparin. Discharge Planning Pending clinical improvement. Wilmer Mackenzie MD Aug 10, 2017 14:38
[2017-08-10] MEDS: THEOPHYLLINE ER 24 HR 300 MG CAPCR PO SCH (16:46)
[2017-08-11] VITALS (9 sets, daily range): BP systolic 103–129; BP diastolic 53–88; PULSE 75–114; RESP 18–20; TEMP 97.5–98; O2SAT 93–98
[2017-08-11] MEDS: RESP: ALBUTEROL 2.5 MG/3 ML NEB (PRN) NEB ×3 (01:40→11:29)
[2017-08-11] MEDS: LORazepam 0.5 MG TAB PO PRN ×2 (01:47→11:48)
[2017-08-11] MEDS: RESP: ALBUTEROL 2.5 MG/IPRATROPIUM 0.5 MG NEB (SCH) NEB ×4 (03:13→21:32)
[2017-08-11] MEDS: methylPREDNISolone SOD SUCC 40 MG/1 ML VIAL IV PUSH SCH ×3 (05:09→17:13)
[2017-08-11] MEDS ORDERED: LORazepam 0.5 MG TAB PO ONE (05:30)
[2017-08-11] MEDS: HEPARIN SODIUM - SQ 10,000 UNITS/ML VIAL SQ SCH ×2 (06:06→14:44)
[2017-08-11 07:49] LABS: AUTOMATED NEUTROPHIL # 9.6 TH/MM3 (1.8-7.7); BASOPHIL % 0.1 % (0.0-2.0); HEMATOCRIT 39.6 % (39.0-51.0); HEMOGLOBIN 12.8 GM/DL (13.0-17.0); LYMPH % 2.9 % (9.0-44.0); LYMPHOCYTE # 0.3 TH/MM3 (1.0-4.8); MEAN CELL VOLUME 68.9 FL (80.0-100.0); MEAN CORPUSCULAR HEMOGLOBIN 22.2 PG (27.0-34.0); MEAN CORPUSCULAR HGB CONC 32.2 % (32.0-36.0); MEAN PLATELET VOLUME 8.9 FL (7.0-11.0); MONO % 6.8 % (0.0-8.0); MONOCYTE # 0.7 TH/MM3 (0-0.9); NEUT % 90.2 % (16.0-70.0); PLATELET COUNT 248 TH/MM3 (150-450); RED BLOOD COUNT 5.75 MIL/MM3 (4.50-5.90); RED CELL DISTRIBUTION WIDTH 16.2 % (11.6-17.2); WHITE BLOOD COUNT 10.6 TH/MM3 (4.0-11.0)
[2017-08-11 08:02] LABS: BICARBONATE 31.5 MEQ/L (21.0-32.0); CALCIUM 8.6 MG/DL (8.5-10.1); CREATININE 0.66 MG/DL (0.60-1.30)
[2017-08-11] MEDS: REMOVE OLD PATCH T-DERMAL SCH (09:00)
[2017-08-11] MEDS: SODIUM CHLORIDE 0.9% FLUSH 10 ML FLUSH IV FLUSH SCH ×2 (09:00→21:19)
[2017-08-11] MEDS: guaiFENesin E.R. 600 MG TAB PO SCH ×2 (09:05→21:19)
[2017-08-11] MEDS: THEOPHYLLINE ER 24 HR 300 MG CAPCR PO SCH (09:05)
[2017-08-11] MEDS: NICOTINE 7 MG/24 HR PATCH T-DERMAL SCH (09:05)
--- NOTE | 2017-08-11 14:30 | HHI.PR ---
Subjective Remarks Follow-up COPD exacerbation, anxiety. Patient states that he is feeling better today. The Ativan seems to be helping a little bit. Theophylline help yesterday , but the effects wore off and he had "a very bad night". Objective Vitals Vital Signs Date Time Temp Pulse Resp B/P (MAP) Pulse Ox O2 Delivery O2 Flow Rate FiO2 08/11/17 12:25 98.0 107 20 118/88 (98) 94 08/11/17 09:21 97 Nasal Cannula 3.50 08/11/17 08:40 97.5 105 18 126/76 (93) 98 08/11/17 05:29 97.7 75 18 119/73 (88) 97 08/11/17 01:43 94 Nasal Cannula 3.00 08/11/17 00:21 97.5 96 18 103/53 (70) 95 08/10/17 16:00 97.6 106 18 109/67 (81) 95 08/10/17 15:59 98 Nasal Cannula 2.50 I/O 08/10/17 08/10/17 08/10/17 08/11/17 08/11/17 08/11/17 07:00 15:00 23:00 07:00 15:00 23:00 Output Total 300 ml 300 ml Balance -300 ml -300 ml Output Urine Total 300 ml 300 ml Result Diagram: 08/11/17 0640 08/11/17 0640 Imaging Last Impressions Chest X-Ray 08/08/17 0531 Signed Impressions: Service Date/Time: Tuesday, August 08, 2017 05:50 - CONCLUSION: No acute findings. Severe emphysema. A Fabrizio Fierro MD CT Angiography 08/08/17 0000 Signed Impressions: Service Date/Time: Tuesday, August 08, 2017 19:15 - CONCLUSION: 1. Negative for pulmonary embolus. 2. Severe emphysema. Conrad Phelps MD Objective Remarks General: Thin male in no acute distress. Heart: Regular rate and rhythm. No murmur. Lungs: Breathing is somewhat labored. Breath sounds are diminished bilaterally, slightly better than yesterday. Mild expiratory wheezes bilaterally. Abdomen: Soft, nontender, nondistended. Extremities: No lower extremity edema. Psych: Alert and oriented. Procedures None Urinary Catheter: No Vascular Central Line Catheter: No A/P Problem List: (1) Tobacco abuse ICD Code: Z72.0 - Tobacco use (2) COPD exacerbation ICD Code: J44.1 - Chronic obstructive pulmonary disease with (acute) exacerbation Status: Acute (3) Lung nodule ICD Code: R91.1 - Solitary pulmonary nodule Status: Acute Assessment and Plan 1. Acute respiratory failure secondary to COPD exacerbation: Continue supplemental oxygen. Continue bronchodilators, IV steroids. Appreciate pulmonology recommendations. Continue azithromycin, theophylline. Slight improvement today. 2. Tobacco abuse: Counseled to quit smoking. States that he had cut down to about one pack per day prior to this hospitalization. Continue nicotine patch. 3. Lung nodule: Not seen on repeat CT pulmonary angiogram. 4. Anxiety: Continue lorazepam as needed. 5. DVT prophylaxis: Heparin. Discharge Planning Pending clinical improvement. Wilmer Mackenzie MD Aug 11, 2017 14:30
[2017-08-11] MEDS: AZITHROMYCIN 250 MG TAB PO SCH (14:44)
--- NOTE | 2017-08-11 16:48 | HHI.PR ---
Subjective Remarks alert still significant [place] Objective Vital Signs Date Time Temp Pulse Resp B/P (MAP) Pulse Ox O2 Delivery O2 Flow Rate FiO2 08/11/17 12:25 98.0 107 20 118/88 (98) 94 08/11/17 09:21 97 Nasal Cannula 3.50 08/11/17 08:40 97.5 105 18 126/76 (93) 98 08/11/17 05:29 97.7 75 18 119/73 (88) 97 08/11/17 01:43 94 Nasal Cannula 3.00 08/11/17 00:21 97.5 96 18 103/53 (70) 95 I/O 08/10/17 08/10/17 08/10/17 08/11/17 08/11/17 08/11/17 07:00 15:00 23:00 07:00 15:00 23:00 Output Total 300 ml 300 ml Balance -300 ml -300 ml Output Urine Total 300 ml 300 ml Result Diagram: 08/11/1740 08/11/17 0640 Objective Remarks GENERAL: SKIN: Warm and dry. HEAD: Atraumatic. Normocephalic. EYES: Pupils equal and round. No scleral icterus. No injection or drainage. ENT: No nasal bleeding or discharge. Mucous membranes pink and moist. NECK: Trachea midline. No JVD. CARDIOVASCULAR: Regular rate and rhythm. RESPIRATORY: No accessory muscle use. Clear to auscultation. Breath sounds equal bilaterally. GASTROINTESTINAL: Abdomen soft, non-tender, nondistended. Hepatic and splenic margins not palpable. MUSCULOSKELETAL: Extremities without clubbing, cyanosis, or edema. No obvious deformities. NEUROLOGICAL: Awake and alert. No obvious cranial nerve deficits. Motor grossly within normal limits. Five out of 5 muscle strength in the arms and legs. Normal speech. PSYCHIATRIC: Appropriate mood and affect; insight and judgment normal. Assessment and Plan Assessment and Plan COPD EX. ANXIETY PLAN O2 as needed bronchodilaters steroids start Buspar Check angelo level Jase Laguna MD Aug 11, 2017 16:48
[2017-08-11] MEDS: busPIRone HCL 10 MG TAB PO SCH (21:19)
[2017-08-12] VITALS (7 sets, daily range): BP systolic 101–132; BP diastolic 59–84; PULSE 88–101; RESP 18–22; TEMP 97.4–97.6; O2SAT 92–97
[2017-08-12] MEDS: methylPREDNISolone SOD SUCC 40 MG/1 ML VIAL IV PUSH SCH ×4 (00:43→18:15)
[2017-08-12] MEDS: HEPARIN SODIUM - SQ 10,000 UNITS/ML VIAL SQ SCH ×3 (00:44→15:36)
[2017-08-12] MEDS: RESP: ALBUTEROL 2.5 MG/IPRATROPIUM 0.5 MG NEB (SCH) NEB ×2 (02:40→10:01)
[2017-08-12] MEDS: THEOPHYLLINE ER 24 HR 300 MG CAPCR PO SCH (09:10)
[2017-08-12] MEDS: guaiFENesin E.R. 600 MG TAB PO SCH ×2 (09:10→21:12)
[2017-08-12] MEDS: NICOTINE 7 MG/24 HR PATCH T-DERMAL SCH (09:10)
[2017-08-12] MEDS: SODIUM CHLORIDE 0.9% FLUSH 10 ML FLUSH IV FLUSH SCH (09:12)
[2017-08-12] MEDS: REMOVE OLD PATCH T-DERMAL SCH (09:12)
[2017-08-12] MEDS: busPIRone HCL 10 MG TAB PO SCH ×3 (09:12→21:12)
--- NOTE | 2017-08-12 15:23 | HHI.PR ---
Subjective Remarks Follow up COPD exacerbation. The patient states that he feels better today than he did yesterday. He had a much better night last night. Anxiety is improving with addition of BuSpar. Objective Vitals Vital Signs Date Time Temp Pulse Resp B/P (MAP) Pulse Ox O2 Delivery O2 Flow Rate FiO2 08/12/17 12:34 97.6 94 18 132/81 (98) 95 08/12/17 10:08 94 Nasal Cannula 4.00 08/12/17 08:22 97.6 94 20 126/84 (98) 92 08/12/17 05:01 97.4 101 18 125/59 (81) 96 08/12/17 01:10 97.5 88 18 101/75 (84) 95 08/11/17 21:33 93 Nasal Cannula 4.00 08/11/17 21:13 97.7 102 18 115/68 (84) 93 08/11/17 17:14 97.8 114 18 129/82 (98) 94 I/O 08/11/17 08/11/17 08/11/17 08/12/17 08/12/17 08/12/17 07:00 15:00 23:00 07:00 15:00 23:00 Intake Total 720 ml Output Total 300 ml 300 ml 850 ml 175 ml Balance -300 ml -300 ml -130 ml -175 ml Intake Oral 720 ml Output Urine Total 300 ml 300 ml 850 ml 175 ml Result Diagram: 08/11/17 0640 08/11/17 0640 Imaging Last Impressions Chest X-Ray 08/08/17 0531 Signed Impressions: Service Date/Time: Tuesday, August 08, 2017 05:50 - CONCLUSION: No acute findings. Severe emphysema. A Fabrizio Fierro MD CT Angiography 08/08/17 0000 Signed Impressions: Service Date/Time: Tuesday, August 08, 2017 19:15 - CONCLUSION: 1. Negative for pulmonary embolus. 2. Severe emphysema. Conrad Phelps MD Objective Remarks General: Thin male in no acute distress. Heart: Regular rate and rhythm. No murmur. Lungs: Breathing is nonlabored. Mild expiratory wheezes bilaterally. Abdomen: Soft, nontender, nondistended. Extremities: No lower extremity edema. Psych: Alert and oriented. Procedures None Urinary Catheter: No Vascular Central Line Catheter: No A/P Problem List: (1) Tobacco abuse ICD Code: Z72.0 - Tobacco use (2) COPD exacerbation ICD Code: J44.1 - Chronic obstructive pulmonary disease with (acute) exacerbation Status: Acute (3) Lung nodule ICD Code: R91.1 - Solitary pulmonary nodule Status: Acute Assessment and Plan 1. Acute respiratory failure secondary to COPD exacerbation: Continue supplemental oxygen. Continue bronchodilators, IV steroids. Appreciate pulmonology recommendations. Continue azithromycin, theophylline. Improving clinically. 2. Tobacco abuse: Counseled to quit smoking. States that he had cut down to about one pack per day prior to this hospitalization. Continue nicotine patch. 3. Lung nodule: Not seen on repeat CT pulmonary angiogram. 4. Anxiety: Continue lorazepam as needed. Continue BuSpar. 5. DVT prophylaxis: Heparin. Discharge Planning Pending clinical improvement. Possible discharge home Tuesday or Tuesday. Wilmer Mackenzie MD Aug 12, 2017 15:23
[2017-08-12] MEDS: AZITHROMYCIN 250 MG TAB PO SCH (15:36)
[2017-08-12] MEDS: RESP: ALBUTEROL 2.5 MG/3 ML NEB (PRN) NEB ×2 (17:48→20:51)
[2017-08-13] VITALS (7 sets, daily range): BP systolic 102–137; BP diastolic 60–83; PULSE 83–106; RESP 18–20; TEMP 97.4–98.1; O2SAT 91–96
[2017-08-13] MEDS: HEPARIN SODIUM - SQ 10,000 UNITS/ML VIAL SQ SCH ×4 (00:06→23:03)
[2017-08-13] MEDS: methylPREDNISolone SOD SUCC 40 MG/1 ML VIAL IV PUSH SCH ×5 (00:06→23:04)
[2017-08-13] MEDS: SODIUM CHLORIDE 0.9% FLUSH 10 ML FLUSH IV FLUSH SCH ×3 (00:06→21:00)
[2017-08-13] MEDS: RESP: ALBUTEROL 2.5 MG/3 ML NEB (PRN) NEB ×2 (00:37→22:42)
[2017-08-13] MEDS: guaiFENesin E.R. 600 MG TAB PO SCH ×2 (08:26→21:42)
[2017-08-13] MEDS: busPIRone HCL 10 MG TAB PO SCH ×2 (08:27→21:42)
[2017-08-13] MEDS: REMOVE OLD PATCH T-DERMAL SCH (08:29)
[2017-08-13] MEDS: NICOTINE 7 MG/24 HR PATCH T-DERMAL SCH (08:29)
[2017-08-13] MEDS: THEOPHYLLINE ER 24 HR 300 MG CAPCR PO SCH (08:40)
[2017-08-13] MEDS: AZITHROMYCIN 250 MG TAB PO SCH (14:47)
--- NOTE | 2017-08-13 14:58 | HHI.PR ---
Subjective Remarks Follow up COPD exacerbation. The patient feels "much worse" today. He has increased dyspnea. Had back pain while sitting in the chair, improved with lying down in bed. Objective Vitals Vital Signs Date Time Temp Pulse Resp B/P (MAP) Pulse Ox O2 Delivery O2 Flow Rate FiO2 08/13/17 12:00 97.9 106 20 123/70 (87) 94 08/13/17 08:00 97.4 94 20 128/81 (97) 91 08/13/17 06:13 97.5 83 20 105/61 (76) 96 08/13/17 01:00 97.7 86 20 102/60 (74) 94 08/12/17 21:12 97.6 96 22 123/83 (96) 93 08/12/17 20:52 97 Nasal Cannula 3.50 I/O 08/12/17 08/12/17 08/12/17 08/13/17 08/13/17 08/13/17 07:00 15:00 23:00 07:00 15:00 23:00 Output Total 175 ml 300 ml Balance -175 ml -300 ml Output Urine Total 175 ml 300 ml # Voids 1 1 # Bowel Movements 1 Result Diagram: 08/11/17 0640 08/11/17 0640 Imaging Last Impressions Chest X-Ray 08/08/17 0531 Signed Impressions: Service Date/Time: Tuesday, August 08, 2017 05:50 - CONCLUSION: No acute findings. Severe emphysema. A Fabrizio Fierro MD CT Angiography 08/08/17 0000 Signed Impressions: Service Date/Time: Tuesday, August 08, 2017 19:15 - CONCLUSION: 1. Negative for pulmonary embolus. 2. Severe emphysema. Conrad Phelps MD Objective Remarks General: Thin male in no acute distress. Heart: Regular rate and rhythm. No murmur. Lungs: Breathing is nonlabored. Poor air entry. Mild expiratory wheezes bilaterally. Abdomen: Soft, nontender, nondistended. Extremities: No lower extremity edema. Psych: Alert and oriented. Procedures None Urinary Catheter: No Vascular Central Line Catheter: No A/P Problem List: (1) Tobacco abuse ICD Code: Z72.0 - Tobacco use (2) COPD exacerbation ICD Code: J44.1 - Chronic obstructive pulmonary disease with (acute) exacerbation Status: Acute (3) Lung nodule ICD Code: R91.1 - Solitary pulmonary nodule Status: Acute Assessment and Plan 1. Acute respiratory failure secondary to COPD exacerbation: Continue supplemental oxygen, bronchodilators, IV steroids. Appreciate pulmonology recommendations. Continue azithromycin, theophylline. 2. Tobacco abuse: Counseled to quit smoking. States that he had cut down to about one pack per day prior to this hospitalization. Continue nicotine patch. 3. Lung nodule: Not seen on repeat CT pulmonary angiogram. 4. Anxiety: Continue lorazepam as needed. Continue BuSpar. 5. DVT prophylaxis: Heparin. 6. Patient requesting hospice consult. He is not sure if he wants hospice at this point, but would like to discuss his options with them. Discharge Planning Pending clinical improvement. Wilmer Mackenzie MD Aug 13, 2017 14:58
[2017-08-13] MEDS: RESP: ALBUTEROL 2.5 MG/IPRATROPIUM 0.5 MG NEB (SCH) NEB (19:18)
[2017-08-14] VITALS (8 sets, daily range): BP systolic 110–140; BP diastolic 62–80; PULSE 83–105; RESP 18–25; TEMP 97–98.8; O2SAT 91–98
[2017-08-14] MEDS: RESP: ALBUTEROL 2.5 MG/3 ML NEB (PRN) NEB ×2 (05:12→20:12)
[2017-08-14] MEDS: methylPREDNISolone SOD SUCC 40 MG/1 ML VIAL IV PUSH SCH ×3 (05:53→20:31)
[2017-08-14] MEDS: HEPARIN SODIUM - SQ 10,000 UNITS/ML VIAL SQ SCH ×3 (05:54→23:00)
[2017-08-14 08:16] LABS: AUTOMATED NEUTROPHIL # 12.6 TH/MM3 (1.8-7.7); HEMATOCRIT 41.4 % (39.0-51.0); HEMOGLOBIN 13.4 GM/DL (13.0-17.0); LYMPH % 3.4 % (9.0-44.0); LYMPHOCYTE # 0.5 TH/MM3 (1.0-4.8); MEAN CELL VOLUME 68.7 FL (80.0-100.0); MEAN CORPUSCULAR HEMOGLOBIN 22.3 PG (27.0-34.0); MEAN CORPUSCULAR HGB CONC 32.4 % (32.0-36.0); MEAN PLATELET VOLUME 8.8 FL (7.0-11.0); MONO % 4.8 % (0.0-8.0); MONOCYTE # 0.7 TH/MM3 (0-0.9); NEUT % 91.8 % (16.0-70.0); PLATELET COUNT 270 TH/MM3 (150-450); RED BLOOD COUNT 6.02 MIL/MM3 (4.50-5.90); RED CELL DISTRIBUTION WIDTH 16.2 % (11.6-17.2); WHITE BLOOD COUNT 13.7 TH/MM3 (4.0-11.0)
[2017-08-14 08:35] LABS: BICARBONATE 29.1 MEQ/L (21.0-32.0); CALCIUM 8.8 MG/DL (8.5-10.1); CREATININE 0.8 MG/DL (0.60-1.30)
[2017-08-14] MEDS: guaiFENesin E.R. 600 MG TAB PO SCH ×2 (08:56→20:32)
[2017-08-14] MEDS: busPIRone HCL 10 MG TAB PO SCH (08:56)
[2017-08-14] MEDS: REMOVE OLD PATCH T-DERMAL SCH (08:57)
[2017-08-14] MEDS: NICOTINE 7 MG/24 HR PATCH T-DERMAL SCH (08:57)
[2017-08-14] MEDS: THEOPHYLLINE ELIXIR 80 MG/15 ML CUP PO SCH (09:00)
[2017-08-14] MEDS: SODIUM CHLORIDE 0.9% FLUSH 10 ML FLUSH IV FLUSH SCH ×2 (09:01→12:41)
[2017-08-14] MEDS: RESP: ALBUTEROL 2.5 MG/IPRATROPIUM 0.5 MG NEB (SCH) NEB ×2 (09:05→11:24)
[2017-08-14] MEDS: [UNRECOGNIZED DRUG - REMARK] PO SCH ×2 (12:42→21:40)
--- NOTE | 2017-08-14 14:59 | HHI.PR ---
Subjective Remarks Follow-up COPD exacerbation. The patient states that he feels better than he did yesterday, but still has significant shortness of breath with any activity. This includes talking. I had a lengthy conversation with the patient and his daughter, who was available via [employer]. Objective Vitals Vital Signs Date Time Temp Pulse Resp B/P (MAP) Pulse Ox O2 Delivery O2 Flow Rate FiO2 08/14/17 12:00 97.8 83 20 121/62 (81) 91 08/14/17 09:06 91 Nasal Cannula 3.00 08/14/17 08:00 97.7 95 20 133/77 (95) 91 08/14/17 04:30 97.0 100 25 139/78 (98) 92 08/14/17 00:30 98.8 98 18 110/69 (83) 97 08/13/17 20:30 98.1 100 18 111/67 (82) 96 08/13/17 19:19 92 Nasal Cannula 4.00 08/13/17 16:00 98.0 95 20 137/83 (101) 93 I/O 08/13/17 08/13/17 08/13/17 08/14/17 08/14/17 08/14/17 07:00 15:00 23:00 07:00 15:00 23:00 Intake Total 1860 ml 1500 ml Output Total 300 ml 800 ml Balance -300 ml 1860 ml 700 ml Intake Oral 1860 ml 1500 ml Output Urine Total 300 ml 800 ml # Voids 1 8 # Bowel Movements 0 0 Result Diagram: 08/14/17 0742 08/14/17 0742 Imaging Last Impressions Chest X-Ray 08/08/17 0531 Signed Impressions: Service Date/Time: Tuesday, August 08, 2017 05:50 - CONCLUSION: No acute findings. Severe emphysema. Israel Fierro MD CT Angiography 08/08/17 0000 Signed Impressions: Service Date/Time: Tuesday, August 08, 2017 19:15 - CONCLUSION: 1. Negative for pulmonary embolus. 2. Severe emphysema. Conrad Phelps MD Objective Remarks General: Thin male in no acute distress. Heart: Regular rate and rhythm. No murmur. Lungs: Breathing is mildly labored. Poor air entry. Mild expiratory wheezes bilaterally. Abdomen: Soft, nontender, nondistended. Extremities: No lower extremity edema. Psych: Alert and oriented. Procedures None Urinary Catheter: No Vascular Central Line Catheter: No A/P Problem List: (1) Tobacco abuse ICD Code: Z72.0 - Tobacco use (2) COPD exacerbation ICD Code: J44.1 - Chronic obstructive pulmonary disease with (acute) exacerbation Status: Acute (3) Lung nodule ICD Code: R91.1 - Solitary pulmonary nodule Status: Acute Assessment and Plan 1. Acute respiratory failure secondary to COPD exacerbation: Continue supplemental oxygen, bronchodilators, IV steroids. Appreciate pulmonology recommendations. Continue azithromycin, theophylline. 2. Tobacco abuse: Counseled to quit smoking. States that he had cut down to about one pack per day prior to this hospitalization. Continue nicotine patch. 3. Lung nodule: Not seen on repeat CT pulmonary angiogram. 4. Anxiety, depression: Continue lorazepam as needed. Increase BuSpar. 5. DVT prophylaxis: Heparin. 6. Hospice consulted. Patient thinks he wants to go with comfort care measures, possibly discharge to hospice care center for symptom control, but wants to discuss this with his daughter (who will be arriving here on Tuesday). I had a lengthy conversation with the patient and his daughter, who was available via [employer]. The patient was very clear that he would not want CPR or intubation. I confirmed DO NOT RESUSCITATE status with the patient and his daughter. Discharge Planning Pending clinical improvement. Wilmer Mackenzie MD Aug 14, 2017 14:59
[2017-08-14] MEDS: AZITHROMYCIN 250 MG TAB PO SCH (16:08)
[2017-08-14] MEDS ORDERED: MORPHINE SULFATE 2 MG/ML INJ IV ONE (18:45)
[2017-08-14] MEDS: busPIRone HCL 5 MG TAB PO SCH (20:31)
[2017-08-15] VITALS (8 sets, daily range): BP systolic 107–134; BP diastolic 61–99; PULSE 87–110; RESP 17–25; TEMP 97.1–98.7; O2SAT 90–99
[2017-08-15] MEDS: RESP: ALBUTEROL 2.5 MG/IPRATROPIUM 0.5 MG NEB (SCH) NEB ×5 (01:00→20:18)
[2017-08-15] MEDS: [UNRECOGNIZED DRUG - REMARK] PO SCH ×3 (04:00→22:57)
[2017-08-15] MEDS: RESP: ALBUTEROL 2.5 MG/3 ML NEB (PRN) NEB ×3 (06:27→14:20)
[2017-08-15] MEDS: HEPARIN SODIUM - SQ 10,000 UNITS/ML VIAL SQ SCH ×3 (06:56→22:54)
[2017-08-15] MEDS: REMOVE OLD PATCH T-DERMAL SCH (09:00)
[2017-08-15] MEDS: guaiFENesin E.R. 600 MG TAB PO SCH ×2 (09:02→22:54)
[2017-08-15] MEDS: methylPREDNISolone SOD SUCC 40 MG/1 ML VIAL IV PUSH SCH (09:02)
[2017-08-15] MEDS: SODIUM CHLORIDE 0.9% FLUSH 10 ML FLUSH IV FLUSH SCH ×2 (09:02→22:54)
[2017-08-15] MEDS: busPIRone HCL 5 MG TAB PO SCH ×2 (09:02→22:53)
[2017-08-15] MEDS: NICOTINE 7 MG/24 HR PATCH T-DERMAL SCH (09:04)
--- NOTE | 2017-08-15 10:36 | HHI.PR ---
Subjective Remarks Follow-up COPD exacerbation. The patient states that he feels much worse today. He states "I'm not going to make it until Tuesday". He wants to talk to hospice again today. Continues to have significant dyspnea despite receiving albuterol nebulizer treatments every 2 hours. Objective Vitals Vital Signs Date Time Temp Pulse Resp B/P (MAP) Pulse Ox O2 Delivery O2 Flow Rate FiO2 08/15/17 08:05 94 Nasal Cannula 4.00 08/15/17 07:55 98.2 91 20 131/61 (84) 94 08/15/17 04:30 98.1 88 24 111/76 (88) 90 08/15/17 00:20 97.1 106 25 134/99 (111) 97 08/14/17 20:30 98.1 90 24 140/80 (100) 97 08/14/17 20:16 98 Nasal Cannula 4.00 08/14/17 16:00 98.0 105 20 139/68 (91) 95 08/14/17 12:00 97.8 83 20 121/62 (81) 91 I/O 08/14/17 08/14/17 08/14/17 08/15/17 08/15/17 08/15/17 07:00 15:00 23:00 07:00 15:00 23:00 Intake Total 1500 ml 1280 ml 1500 ml Output Total 800 ml 400 ml 1500 ml Balance 700 ml 880 ml 0 ml Intake Oral 1500 ml 1280 ml 1500 ml Output Urine Total 800 ml 400 ml 1500 ml # Voids 6 # Bowel Movements 0 0 0 Result Diagram: 08/14/17 0742 08/14/17 0742 Imaging Last Impressions Chest X-Ray 08/08/17 0531 Signed Impressions: Service Date/Time: Tuesday, August 08, 2017 05:50 - CONCLUSION: No acute findings. Severe emphysema. A Fabrizio Fierro MD CT Angiography 08/08/17 0000 Signed Impressions: Service Date/Time: Tuesday, August 08, 2017 19:15 - CONCLUSION: 1. Negative for pulmonary embolus. 2. Severe emphysema. Conrad Phelps MD Objective Remarks General: Thin male. Appears uncomfortable. Heart: Regular rate and rhythm. No murmur. Lungs: Breathing is somewhat labored. Poor air entry. Diminished breath sounds bilaterally. Abdomen: Soft, nontender, nondistended. Extremities: No lower extremity edema. Psych: Alert and oriented. Procedures None Urinary Catheter: No Vascular Central Line Catheter: No A/P Problem List: (1) Tobacco abuse ICD Code: Z72.0 - Tobacco use (2) COPD exacerbation ICD Code: J44.1 - Chronic obstructive pulmonary disease with (acute) exacerbation Status: Acute (3) Lung nodule ICD Code: R91.1 - Solitary pulmonary nodule Status: Acute Assessment and Plan 1. Acute respiratory failure secondary to COPD exacerbation: Continue supplemental oxygen. Increase frequency of DuoNeb. Continue albuterol nebulizers as needed. Increase Solu-Medrol. Appreciate pulmonology recommendations. Continue azithromycin, theophylline. Oxygen saturation is good , but symptoms are worsening. 2. Tobacco abuse: Counseled to quit smoking. States that he had cut down to about one pack per day prior to this hospitalization. Continue nicotine patch. 3. Lung nodule: Not seen on repeat CT pulmonary angiogram. 4. Anxiety, depression: Continue lorazepam as needed. Increase BuSpar. 5. DVT prophylaxis: Heparin. 6. Hospice consulted. Patient thinks he wants to go with comfort care measures, possibly discharge to hospice care center for symptom control, but wanted to discuss this with his daughter (who will be arriving here on Tuesday). He now says that he does not feel like he will make it until Tuesday if his symptoms don't improve. He would like to speak with hospice again today. Palliative care consult also requested for assistance with symptom management and clarification of goals of care. 7. CODE STATUS: DO NOT RESUSCITATE. Discharge Planning Pending clinical improvement. Wilmer Mackenzie MD Aug 15, 2017 10:36
[2017-08-15 11:15] LABS: AUTOMATED NEUTROPHIL # 12.1 TH/MM3 (1.8-7.7); BASOPHIL # 0.1 TH/MM3 (0-0.2); BASOPHIL % 0.4 % (0.0-2.0); HEMATOCRIT 42.1 % (39.0-51.0); HEMOGLOBIN 13.6 GM/DL (13.0-17.0); LYMPH % 3.5 % (9.0-44.0); LYMPHOCYTE # 0.5 TH/MM3 (1.0-4.8); MEAN CELL VOLUME 69.1 FL (80.0-100.0); MEAN CORPUSCULAR HEMOGLOBIN 22.3 PG (27.0-34.0); MEAN CORPUSCULAR HGB CONC 32.2 % (32.0-36.0); MEAN PLATELET VOLUME 9.2 FL (7.0-11.0); MONO % 9.4 % (0.0-8.0); MONOCYTE # 1.3 TH/MM3 (0-0.9); NEUT % 86.7 % (16.0-70.0); PLATELET COUNT 299 TH/MM3 (150-450); RED CELL DISTRIBUTION WIDTH 15.7 % (11.6-17.2); WHITE BLOOD COUNT 13.9 TH/MM3 (4.0-11.0)
[2017-08-15] MEDS: LORazepam 0.5 MG TAB PO PRN (12:41)
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
[2017-08-15] MEDS ORDERED: LORazepam 2 MG/ML VIAL IV PUSH ONE (14:00)
[2017-08-15] MEDS: PANTOPRAZOLE SOD 40 MG DELAYED RELEASE TAB PO SCH (14:36)
[2017-08-15] MEDS: MORPHINE SULFATE 2 MG/ML INJ IV PUSH PRN (14:37)
[2017-08-15] MEDS: methylPREDNISolone SOD SUCC 125 MG/2 ML VIAL IV PUSH SCH ×2 (15:52→22:54)
[2017-08-15] MEDS: AZITHROMYCIN 250 MG TAB PO SCH (15:57)
[2017-08-15] MEDS ORDERED: LORazepam 2 MG/ML VIAL IV PUSH PRN (16:00)
--- NOTE | 2017-08-15 16:28 | HHI.PR ---
Subjective Remarks alert still significant [place] Objective Vital Signs Date Time Temp Pulse Resp B/P (MAP) Pulse Ox O2 Delivery O2 Flow Rate FiO2 08/15/17 15:58 98.7 110 20 107/76 (86) 99 08/15/17 12:10 97.9 87 20 124/61 (82) 94 08/15/17 08:05 94 Nasal Cannula 4.00 08/15/17 07:55 98.2 91 20 131/61 (84) 94 08/15/17 04:30 98.1 88 24 111/76 (88) 90 08/15/17 00:20 97.1 106 25 134/99 (111) 97 08/14/17 20:30 98.1 90 24 140/80 (100) 97 08/14/17 20:16 98 Nasal Cannula 4.00 I/O 08/14/17 08/14/17 08/14/17 08/15/17 08/15/17 08/15/17 07:00 15:00 23:00 07:00 15:00 23:00 Intake Total 1500 ml 1280 ml 1500 ml Output Total 800 ml 400 ml 1500 ml Balance 700 ml 880 ml 0 ml Intake Oral 1500 ml 1280 ml 1500 ml Output Urine Total 800 ml 400 ml 1500 ml # Voids 6 # Bowel Movements 0 0 0 Result Diagram: 08/15/17 1020 08/14/17 0742 Objective Remarks GENERAL: SKIN: Warm and dry. HEAD: Atraumatic. Normocephalic. EYES: Pupils equal and round. No scleral icterus. No injection or drainage. ENT: No nasal bleeding or discharge. Mucous membranes pink and moist. NECK: Trachea midline. No JVD. CARDIOVASCULAR: Regular rate and rhythm. RESPIRATORY: No accessory muscle use. Clear to auscultation. Breath sounds equal bilaterally. GASTROINTESTINAL: Abdomen soft, non-tender, nondistended. Hepatic and splenic margins not palpable. MUSCULOSKELETAL: Extremities without clubbing, cyanosis, or edema. No obvious deformities. NEUROLOGICAL: Awake and alert. No obvious cranial nerve deficits. Motor grossly within normal limits. Five out of 5 muscle strength in the arms and legs. Normal speech. PSYCHIATRIC: Appropriate mood and affect; insight and judgment normal. Assessment and Plan Assessment and Plan COPD EX. ANXIETY PLAN O2 as needed bronchodilaters steroids start Buspar palliative care involved Jase Laguna MD Aug 15, 2017 16:28
[2017-08-16] VITALS (8 sets, daily range): BP systolic 105–151; BP diastolic 68–93; PULSE 85–118; RESP 16–19; TEMP 97–98.5; O2SAT 93–99
[2017-08-16] MEDS: LORazepam 0.5 MG TAB PO PRN ×4 (03:33→23:32)
[2017-08-16] MEDS: methylPREDNISolone SOD SUCC 125 MG/2 ML VIAL IV PUSH SCH ×4 (03:34→21:15)
[2017-08-16] MEDS: [UNRECOGNIZED DRUG - REMARK] PO SCH ×3 (03:35→20:00)
[2017-08-16] MEDS: MORPHINE SULFATE 4 MG/ML INJ IV PUSH PRN ×2 (05:28→08:46)
[2017-08-16] MEDS: HEPARIN SODIUM - SQ 10,000 UNITS/ML VIAL SQ SCH ×3 (06:13→21:15)
[2017-08-16] MEDS: RESP: ALBUTEROL 2.5 MG/IPRATROPIUM 0.5 MG NEB (SCH) NEB ×4 (08:00→19:52)
[2017-08-16] MEDS: busPIRone HCL 5 MG TAB PO SCH ×2 (08:45→21:15)
[2017-08-16] MEDS: REMOVE OLD PATCH T-DERMAL SCH (08:46)
[2017-08-16] MEDS: guaiFENesin E.R. 600 MG TAB PO SCH ×2 (08:46→21:15)
[2017-08-16] MEDS: PANTOPRAZOLE SOD 40 MG DELAYED RELEASE TAB PO SCH (08:46)
[2017-08-16] MEDS: NICOTINE 7 MG/24 HR PATCH T-DERMAL SCH (08:46)
[2017-08-16] MEDS: SODIUM CHLORIDE 0.9% FLUSH 10 ML FLUSH IV FLUSH SCH ×2 (08:47→21:18)
[2017-08-16] MEDS: MORPHINE SULFATE 2 MG/ML INJ IV PUSH PRN ×5 (12:39→23:31)
--- NOTE | 2017-08-16 13:49 | HHI.PR ---
Subjective Remarks Follow-up COPD exacerbation/COPD with respiratory failure 08/16/17-patient seen and examined still with shortness of breath as well as increased anxiety. Objective Vitals Vital Signs Date Time Temp Pulse Resp B/P (MAP) Pulse Ox O2 Delivery O2 Flow Rate FiO2 08/16/17 13:02 98.5 85 16 145/90 (108) 94 08/16/17 08:30 97.0 107 16 151/90 (110) 93 08/16/17 08:08 95 Nasal Cannula 4.00 08/16/17 05:41 18 08/16/17 05:23 97.9 102 19 132/81 (98) 95 08/16/17 00:20 97.7 101 18 126/68 (87) 99 08/15/17 20:20 98.0 94 17 126/61 (82) 97 08/15/17 20:18 97 Nasal Cannula 4.00 08/15/17 15:58 98.7 110 20 107/76 (86) 99 I/O 08/15/17 08/15/17 08/15/17 08/16/17 08/16/17 08/16/17 07:00 15:00 23:00 07:00 15:00 23:00 Intake Total 1500 ml 240 ml Output Total 1500 ml 200 ml Balance 0 ml -200 ml 240 ml Intake Oral 1500 ml 240 ml Output Urine Total 1500 ml 200 ml # Voids 1 2 # Bowel Movements 0 Result Diagram: 08/15/17 1020 08/14/17 0742 Imaging Last Impressions Chest X-Ray 08/08/17 0531 Signed Impressions: Service Date/Time: Tuesday, August 08, 2017 05:50 - CONCLUSION: No acute findings. Severe emphysema. A Fabrizio Fierro MD CT Angiography 08/08/17 0000 Signed Impressions: Service Date/Time: Tuesday, August 08, 2017 19:15 - CONCLUSION: 1. Negative for pulmonary embolus. 2. Severe emphysema. Conrad Phelps MD Objective Remarks GENERAL: NAD however very anxious SKIN: Warm and dry. HEAD: Normocephalic. EYES: No scleral icterus. No injection or drainage. NECK: Supple, trachea midline. No JVD or lymphadenopathy. CARDIOVASCULAR: Regular rate and rhythm without murmurs, gallops, or rubs. RESPIRATORY: Breath sounds decrease bilaterally. +exp wheezing as well as fines crackles. No accessory muscle use. GASTROINTESTINAL: Abdomen soft, non-tender, nondistended. MUSCULOSKELETAL: No cyanosis, or edema. BACK: Nontender without obvious deformity. No CVA tenderness. Procedures None A/P Problem List: (1) Tobacco abuse ICD Code: Z72.0 - Tobacco use (2) COPD exacerbation ICD Code: J44.1 - Chronic obstructive pulmonary disease with (acute) exacerbation Status: Acute (3) Lung nodule ICD Code: R91.1 - Solitary pulmonary nodule Status: Acute (4) Chronic obstructive pulmonary disease with acute lower respiratory infection ICD Code: J44.0 - Chronic obstructive pulmonary disease with acute lower respiratory infection Assessment and Plan 66-year-old man with 1. Acute respiratory failure secondary to COPD exacerbation END stage COPD? Continue Continue albuterol nebulizers as needed, Solu-Medrol,LABA, azithromycin, theophylline Maintain oxygen saturation above 92% Appreciate input from pulmonary medicine Awaiting for hospice 2. Tobacco abuse: Counseled to quit smoking. Continue nicotine patch. 3. Lung nodule Not seen on repeat CT pulmonary angiogram. 4. Anxiety, depression: Continue lorazepam as needed and BuSpar. 5. DVT prophylaxis: Heparin. 6. Hospice consulted Pending 7. CODE STATUS: DO NOT RESUSCITATE. Arnoldo Fitch MD Aug 16, 2017 13:49
--- NOTE | 2017-08-16 14:40 | HHI.HCPN ---
Reason for visit a. To assist with evaluation and management of symptoms including: Dyspnea, pain, anxiety b. To assist medical decision maker(s) with: better understanding of current medical conditions; weighing benefits/burdens of medical treatment options; making medical treatment decisions. Subjective/Interval History 66 yr old male with long hx smoking and COPD, seen for symptom management of dyspnea. Patient seen in room 1528; no family present. He is drowsy but very easily rousable, alert and appropriate. He says he feels "like it's a different world " since initiation of lorazepam and morphine yesterday; although he is still short of breath he feels much less panicky and has been able to nap for longer periods, resulting in improvement in sensation of gasping for breath. His complexion is more pink, less choudhary today; his appetite remains poor but he states that his fluid intake has improved. Vital signs are stable; less tachycardic this afternoon. Weight has dropped from 55.4kg to 52.8kg since admission. There are no new labs or imaging. Patient states that his daughter will be here this evening to help him evaluate options for hospice care center or home; he is still committed to comfort- oriented care and remains a NO CODE. . Family/friend interactions No family or friends are currently present; pt's daughter will arrive sometime this evening. . Advance Directives Living Will: Completed, but not made available Health Care Surrogate: Completed, but not made available Objective Vital Signs Date Time Temp Pulse Resp B/P (MAP) Pulse Ox O2 Delivery O2 Flow Rate FiO2 08/16/17 13:02 98.5 85 16 145/90 (108) 94 08/16/17 08:30 97.0 107 16 151/90 (110) 93 08/16/17 08:08 95 Nasal Cannula 4.00 08/16/17 05:41 18 08/16/17 05:23 97.9 102 19 132/81 (98) 95 08/16/17 00:20 97.7 101 18 126/68 (87) 99 08/15/17 20:20 98.0 94 17 126/61 (82) 97 08/15/17 20:18 97 Nasal Cannula 4.00 08/15/17 15:58 98.7 110 20 107/76 (86) 99 Intake & Output 08/16/17 08/16/17 07:00 19:00 Intake Total 240 ml Balance 240 ml Intake Oral 240 ml # Voids 2 Physical Exam CONSTITUTIONAL/GENERAL: alert, very thin, chronically ill appearing man TUBES/LINES/DRAINS: PIV RUE, NC O2 SKIN: No jaundice, rashes, or lesions. No wounds seen anteriorly. Skin warm/dry ; complexion more pink, less choudhary today HEAD: Atraumatic. Normocephalic. EYES: Pupils equal and round and reactive. Extraocular motions intact. ENT: Hearing grossly normal. Nose without bleeding or purulent drainage. Throat without visible erythema, exudates, masses, or lesions. Dentures in place; oral mucosa dry but not parched CARDIOVASCULAR: Regular rate and rhythm without murmur. No JVD. Peripheral pulses symmetric. RESPIRATORY/CHEST: Symmetric, mildly labored respirations. Tachypneic. On NC 4L. Clear to auscultation decreased air movement throughout. no wheezing. GASTROINTESTINAL: Abdomen soft, flat non-tender, nondistended. . Bowel sounds present. GENITOURINARY: Without palpable bladder distension. MUSCULOSKELETAL: Extremities without clubbing, cyanosis, or edema. No joint tenderness or effusion noted. Extremities very thin, + muscle atrophy x4. NEUROLOGICAL: Awake and alert. Oriented x3 , appropriate. Reasonable insight. Motor and sensory grossly within normal limits. Follows commands. Cognitively sharp. Moves all 4 extremities. PSYCHIATRIC: Less anxiety today; he continues to exhibit a reasonable understanding of his situation and options; no delusions. . . Diagnostic Tests Laboratory Laboratory Tests Test 08/14/17 07:42 08/15/17 10:20 08/16/17 07:20 White Blood Count 13.7 TH/MM3 (4.0-11.0) 13.9 TH/MM3 (4.0-11.0) Red Blood Count 6.02 MIL/MM3 (4.50-5.90) 6.10 MIL/MM3 (4.50-5.90) Hemoglobin 13.4 GM/DL (13.0-17.0) 13.6 GM/DL (13.0-17.0) Hematocrit 41.4 % (39.0-51.0) 42.1 % (39.0-51.0) Mean Corpuscular Volume 68.7 FL (80.0-100.0) 69.1 FL (80.0-100.0) Mean Corpuscular Hemoglobin 22.3 PG (27.0-34.0) 22.3 PG (27.0-34.0) Mean Corpuscular Hemoglobin Concent 32.4 % (32.0-36.0) 32.2 % (32.0-36.0) Red Cell Distribution Width 16.2 % (11.6-17.2) 15.7 % (11.6-17.2) Platelet Count 270 TH/MM3 (150-450) 299 TH/MM3 (150-450) Mean Platelet Volume 8.8 FL (7.0-11.0) 9.2 FL (7.0-11.0) Neutrophils (%) (Auto) 91.8 % (16.0-70.0) 86.7 % (16.0-70.0) Lymphocytes (%) (Auto) 3.4 % (9.0-44.0) 3.5 % (9.0-44.0) Monocytes (%) (Auto) 4.8 % (0.0-8.0) 9.4 % (0.0-8.0) Eosinophils (%) (Auto) 0.0 % (0.0-4.0) 0.0 % (0.0-4.0) Basophils (%) (Auto) 0.0 % (0.0-2.0) 0.4 % (0.0-2.0) Neutrophils # (Auto) 12.6 TH/MM3 (1.8-7.7) 12.1 TH/MM3 (1.8-7.7) Lymphocytes # (Auto) 0.5 TH/MM3 (1.0-4.8) 0.5 TH/MM3 (1.0-4.8) Monocytes # (Auto) 0.7 TH/MM3 (0-0.9) 1.3 TH/MM3 (0-0.9) Eosinophils # (Auto) 0.0 TH/MM3 (0-0.4) 0.0 TH/MM3 (0-0.4) Basophils # (Auto) 0.0 TH/MM3 (0-0.2) 0.1 TH/MM3 (0-0.2) CBC Comment DIFF FINAL DIFF FINAL Differential Comment Blood Urea Nitrogen 30 MG/DL (7-18) Creatinine 0.80 MG/DL (0.60-1.30) Random Glucose 179 MG/DL (74-106) Calcium Level 8.8 MG/DL (8.5-10.1) Sodium Level 139 MEQ/L (136-145) Potassium Level 3.9 MEQ/L (3.5-5.1) Chloride Level 101 MEQ/L (98-107) Carbon Dioxide Level 29.1 MEQ/L (21.0-32.0) Anion Gap 9 MEQ/L (5-15) Estimat Glomerular Filtration Rate 96 ML/MIN (>89) Theophylline Level 7.8 MCG/ML (10.0-20.0) 8.2 MCG/ML (10.0-20.0) Result Diagram: 08/15/17 1020 08/14/17 0742 Microbiology No new cultures. . 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 Supported by 2 daughters, sister. One daughter is a nurse practitioner in [place]. Sister is retired nurse practitioner. 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 He indicates that his daughter is designated healthcare surrogate. We do not have copies of this documentation at this time. Request a provide copies of this documentation. Not . In absence this document legal decision making /proxy would fall to visit to adult daughters. Ethical issues impacting care: Important Contacts Sister Tanya Spicer [phone] . Prognosis this patient was admitted for severe dyspnea. He has advanced COPD. He is O2 dependent at home. He is now requiring nebulizers every 2 hours. He has elected DNR status. Without further invasive measures such as intubation he would be expected have very limited life expectancy. Appropriate for hospice and comfort measures if goals compatible. . Code Status: No Code Plan * Legal decision maker:Patient is currently alert oriented and capacitated to make his own decisions. He indicates that his daughter is designated healthcare surrogate. We do not have copies of this documentation at this time. Request a provide copies of this documentation. Not . In absence this document legal decision making /proxy would fall to visit to adult daughters. * Goals: GOALS comfort oriented. Pt wishes to proceed w enrollment in hospice for ES COPD. Daughter will arrive to discuss options tonight. He is pleased that symptom burden is somewhat less today.. D/w nursing; * CODE STATUS: DNR * SYMPTOMS: --Dyspnea= advanced COPD, O2 dependent prior to admission. Some improvement during hospital course with ongoing treatment theophylline, steroids, nebulizers. Subjectively still endorsing severe dyspnea, this is likely compounded by his severe anxiety. Would benefit from opiates, benzodiazepines, patient amenable to this, orders entered. Patient expressing comfort goals, requests DNR/DNI hospice enrollment pending --Anxiety= advanced COPD, O2 dependent prior to admission. Giving up cigarettes (prior hx 3 packs per day) and dyspnea has compounded feelings of anxiety but he endorses some improvement with addition of PRN lorazepam; encourage same plan until dispo is clear. --Pain-chest= endorses a sharp, intermittent chest pain in his left chest which worsens with severe episodes of dyspnea/anxiety. Given his comfort oriented goals would not pursue further cardiac workup. History of chronic back and rib pain, back pain secondary to lumbar fractures and falls many years ago, rib fractures more recently secondary to severe coughing episodes. He endorses some improvement in pain with addition of morphine; continue same until clear dispo.. * Palliative care will continue to follow during hospital course as condition evolves, to assist patient/decision-maker with understanding of medical conditions, weighing benefits/burdens of treatment options, for clarification of goals of treatment. Additionally will assist with any symptoms of palliative concern * . Time Spent Total Floor Time (mins): 27 (Total time to include chart review, physical exam and discussion with patient about goals of care) >50% Counseling/Coord of Care: Yes Attestation To help prompt me to consider important information that might be impacting today's encounter and assessment, information from prior notes written by myself or my colleagues may have been "brought forward" into today's note. My signature on this note, however, is an attestation that I personally performed the exam, history, and/or decision-making noted today, and, unless otherwise indicated, the interactions with patient, family, and staff as well as the review of records all occurred today. I also attest that the listed assessment and stated plan reflect my best clinical judgment today based on the combination of historical information, prior notes, and today's exam/ interactions. When time spent is documented, it refers only to time spent today by the signer, or if indicated, combined time spent today by collaborating physician/nurse practitioner. . Annamarie Macdonald Aug 16, 2017 14:40
[2017-08-16] MEDS: AZITHROMYCIN 250 MG TAB PO SCH (15:04)
--- NOTE | 2017-08-16 15:32 | HHI.PR ---
Subjective Remarks alert still significant [facility] Objective Vital Signs Date Time Temp Pulse Resp B/P (MAP) Pulse Ox O2 Delivery O2 Flow Rate FiO2 08/16/17 13:02 98.5 85 16 145/90 (108) 94 08/16/17 08:30 97.0 107 16 151/90 (110) 93 08/16/17 08:08 95 Nasal Cannula 4.00 08/16/17 05:41 18 08/16/17 05:23 97.9 102 19 132/81 (98) 95 08/16/17 00:20 97.7 101 18 126/68 (87) 99 08/15/17 20:20 98.0 94 17 126/61 (82) 97 08/15/17 20:18 97 Nasal Cannula 4.00 08/15/17 15:58 98.7 110 20 107/76 (86) 99 I/O 08/15/17 08/15/17 08/15/17 08/16/17 08/16/17 08/16/17 07:00 15:00 23:00 07:00 15:00 23:00 Intake Total 1500 ml 240 ml Output Total 1500 ml 200 ml Balance 0 ml -200 ml 240 ml Intake Oral 1500 ml 240 ml Output Urine Total 1500 ml 200 ml # Voids 1 2 # Bowel Movements 0 Result Diagram: 08/15/17 1020 08/14/17 0742 Objective Remarks GENERAL: SKIN: Warm and dry. HEAD: Atraumatic. Normocephalic. EYES: Pupils equal and round. No scleral icterus. No injection or drainage. ENT: No nasal bleeding or discharge. Mucous membranes pink and moist. NECK: Trachea midline. No JVD. CARDIOVASCULAR: Regular rate and rhythm. RESPIRATORY: No accessory muscle use. Clear to auscultation. Breath sounds equal bilaterally. GASTROINTESTINAL: Abdomen soft, non-tender, nondistended. Hepatic and splenic margins not palpable. MUSCULOSKELETAL: Extremities without clubbing, cyanosis, or edema. No obvious deformities. NEUROLOGICAL: Awake and alert. No obvious cranial nerve deficits. Motor grossly within normal limits. Five out of 5 muscle strength in the arms and legs. Normal speech. PSYCHIATRIC: Appropriate mood and affect; insight and judgment normal. Assessment and Plan Assessment and Plan COPD EX. ANXIETY PLAN O2 as needed bronchodilaters steroids palliative care involved outlook Jase Lazaro MD Aug 16, 2017 15:32
[2017-08-17 00:04] VITALS: BP 121/78; PULSE 65; RESP 19; TEMP 97.7; O2SAT 97
[2017-08-17] MEDS: RESP: ALBUTEROL 2.5 MG/3 ML NEB (PRN) NEB (00:10)
[2017-08-17] MEDS: MORPHINE SULFATE 2 MG/ML INJ IV PUSH PRN ×6 (01:41→15:08)
[2017-08-17] MEDS: THEOPHYLLINE ELIXIR 80 MG/15 ML CUP PO SCH ×2 (02:17→08:47)
[2017-08-17] MEDS: methylPREDNISolone SOD SUCC 125 MG/2 ML VIAL IV PUSH SCH ×2 (02:17→08:46)
[2017-08-17 04:42] VITALS: BP 128/82; PULSE 91; RESP 19; TEMP 97.4; O2SAT 96
[2017-08-17] MEDS: LORazepam 0.5 MG TAB PO PRN ×2 (06:00→12:27)
[2017-08-17] MEDS: HEPARIN SODIUM - SQ 10,000 UNITS/ML VIAL SQ SCH ×2 (06:00→14:14)
[2017-08-17] MEDS: RESP: ALBUTEROL 2.5 MG/IPRATROPIUM 0.5 MG NEB (SCH) NEB ×2 (07:32→11:15)
[2017-08-17 07:36] VITALS: O2SAT 96
[2017-08-17 08:35] VITALS: BP 122/79; PULSE 120; RESP 19; TEMP 97.5; O2SAT 94
[2017-08-17] MEDS: REMOVE OLD PATCH T-DERMAL SCH (08:44)
[2017-08-17] MEDS: NICOTINE 7 MG/24 HR PATCH T-DERMAL SCH (08:44)
[2017-08-17] MEDS: busPIRone HCL 5 MG TAB PO SCH (08:45)
[2017-08-17] MEDS: PANTOPRAZOLE SOD 40 MG DELAYED RELEASE TAB PO SCH (08:45)
[2017-08-17] MEDS: guaiFENesin E.R. 600 MG TAB PO SCH (08:46)
[2017-08-17] MEDS: SODIUM CHLORIDE 0.9% FLUSH 10 ML FLUSH IV FLUSH SCH (08:47)
[2017-08-17 12:35] VITALS: BP 125/70; PULSE 115; RESP 19; TEMP 97.2; O2SAT 93
--- NOTE | 2017-08-17 12:45 | HHI.PR ---
Subjective Remarks Follow-up COPD exacerbation/COPD with respiratory failure 08/16/17-patient seen and examined still with shortness of breath as well as increased anxiety. 08/17/17-patient seen and examined, breathing better today and states he is looking forward discharge to Hospice care center. Objective Vitals Vital Signs Date Time Temp Pulse Resp B/P (MAP) Pulse Ox O2 Delivery O2 Flow Rate FiO2 08/17/17 12:35 97.2 115 19 125/70 (88) 93 08/17/17 08:53 Nasal Cannula 4.00 08/17/17 08:35 97.5 120 19 122/79 (93) 94 08/17/17 07:36 96 Nasal Cannula 4.00 08/17/17 04:42 97.4 91 19 128/82 (97) 96 08/17/17 02:02 18 08/17/17 02:00 97 Nasal Cannula 7.00 08/17/17 00:04 97.7 65 19 121/78 (92) 97 08/16/17 20:30 97.5 118 19 105/76 (86) 93 08/16/17 20:01 94 Nasal Cannula 4.00 08/16/17 15:51 97.8 108 19 140/93 (109) 94 08/16/17 13:02 98.5 85 16 145/90 (108) 94 I/O 08/16/17 08/16/17 08/16/17 08/17/17 08/17/17 08/17/17 07:00 15:00 23:00 07:00 15:00 23:00 Intake Total 240 ml 480 ml 240 ml Output Total 250 ml 250 ml Balance 240 ml 480 ml -10 ml -250 ml Intake Oral 240 ml 480 ml 240 ml Output Urine Total 250 ml 250 ml # Voids 2 5 # Bowel Movements 1 Result Diagram: 08/15/17 1020 08/14/17 0742 Imaging Last Impressions Chest X-Ray 08/08/17 0531 Signed Impressions: Service Date/Time: Tuesday, August 08, 2017 05:50 - CONCLUSION: No acute findings. Severe emphysema. A Fabrizio Fierro MD CT Angiography 08/08/17 0000 Signed Impressions: Service Date/Time: Tuesday, August 08, 2017 19:15 - CONCLUSION: 1. Negative for pulmonary embolus. 2. Severe emphysema. Conrad Phelps MD Objective Remarks GENERAL: NAD however very anxious SKIN: Warm and dry. HEAD: Normocephalic. EYES: No scleral icterus. No injection or drainage. NECK: Supple, trachea midline. No JVD or lymphadenopathy. CARDIOVASCULAR: Regular rate and rhythm without murmurs, gallops, or rubs. RESPIRATORY: Breath sounds decrease bilaterally. +exp wheezing as well as fines crackles. No accessory muscle use. GASTROINTESTINAL: Abdomen soft, non-tender, nondistended. MUSCULOSKELETAL: No cyanosis, or edema. BACK: Nontender without obvious deformity. No CVA tenderness. Procedures None A/P Problem List: (1) Tobacco abuse ICD Code: Z72.0 - Tobacco use (2) COPD exacerbation ICD Code: J44.1 - Chronic obstructive pulmonary disease with (acute) exacerbation Status: Acute (3) Lung nodule ICD Code: R91.1 - Solitary pulmonary nodule Status: Acute (4) Chronic obstructive pulmonary disease with acute lower respiratory infection ICD Code: J44.0 - Chronic obstructive pulmonary disease with acute lower respiratory infection Assessment and Plan 66-year-old man with 1. Acute respiratory failure secondary to COPD exacerbation END stage COPD? Continue albuterol nebulizers as needed, LABA, theophylline D/c Solu Medrol and switch to PO prednisone D/c Azithromycin Maintain oxygen saturation above 92% Appreciate input from pulmonary medicine Awaiting for hospice discharge possible today 2. Tobacco abuse: Counseled to quit smoking. Continue nicotine patch. 3. Lung nodule Not seen on repeat CT pulmonary angiogram. 4. Anxiety, depression: Continue lorazepam as needed and BuSpar. 5. DVT prophylaxis: Heparin. 6. Hospice consultation Pending 7. CODE STATUS: DO NOT RESUSCITATE. Arnoldo Fitch MD Aug 17, 2017 12:45
[2017-08-17] MEDS ORDERED: [UNRECOGNIZED DRUG - CODE] PO (13:32)
[2017-08-17] MEDS ORDERED: guaiFENesin ER PO (13:32)
[2017-08-17] MEDS ORDERED: BUSP5TAB PO (13:32)
--- NOTE | 2017-08-17 13:34 | HHI.DS ---
Discharge Summary Admission Date Aug 08, 2017 at 06:49 Discharge Date: Aug 17, 2017 Admitting Diagnosis SEVERE COPD WITH HYPOXEMIA (1) Tobacco abuse ICD Code: Z72.0 - Tobacco use (2) COPD exacerbation ICD Code: J44.1 - Chronic obstructive pulmonary disease with (acute) exacerbation Status: Acute (3) Lung nodule ICD Code: R91.1 - Solitary pulmonary nodule Status: Acute (4) Chronic obstructive pulmonary disease with acute lower respiratory infection ICD Code: J44.0 - Chronic obstructive pulmonary disease with acute lower respiratory infection Procedures None Brief History - From Admission 66-year-old male with a medical history significant for emphysema, current tobacco dependence, esophageal stricture presents to the hospital with complaint of worsening shortness of breath over the past 2-3 days. Patient reports he has struggled with COPD over this past year. He saw Dr. black once and was told his lung capacity was only 28%. He never returned for follow- up because he wants to follow with another English Composition Teacher. He is oxygen dependent. He reports a history of broken ribs from severe coughing. Last episode was in June. He states for the past 3 days has had increasing congestion, cough, worsening shortness of breath. He reports associated increase in white sputum production. He denies fevers or chills. CBC/BMP: 08/15/17 1020 08/14/17 0742 Significant Findings Laboratory Tests Test 08/15/17 10:20 08/16/17 07:20 White Blood Count 13.9 TH/MM3 (4.0-11.0) Red Blood Count 6.10 MIL/MM3 (4.50-5.90) Mean Corpuscular Volume 69.1 FL (80.0-100.0) Mean Corpuscular Hemoglobin 22.3 PG (27.0-34.0) Neutrophils (%) (Auto) 86.7 % (16.0-70.0) Lymphocytes (%) (Auto) 3.5 % (9.0-44.0) Monocytes (%) (Auto) 9.4 % (0.0-8.0) Neutrophils # (Auto) 12.1 TH/MM3 (1.8-7.7) Lymphocytes # (Auto) 0.5 TH/MM3 (1.0-4.8) Monocytes # (Auto) 1.3 TH/MM3 (0-0.9) Theophylline Level 8.2 MCG/ML (10.0-20.0) Imaging Last Impressions Chest X-Ray 08/08/17 0531 Signed Impressions: Service Date/Time: Tuesday, August 08, 2017 05:50 - CONCLUSION: No acute findings. Severe emphysema. A Fabrizio Fierro MD CT Angiography 08/08/17 0000 Signed Impressions: Service Date/Time: Tuesday, August 08, 2017 19:15 - CONCLUSION: 1. Negative for pulmonary embolus. 2. Severe emphysema. Conrad Phelps MD PE at Discharge GENERAL: NAD however very anxious SKIN: Warm and dry. HEAD: Normocephalic. EYES: No scleral icterus. No injection or drainage. NECK: Supple, trachea midline. No JVD or lymphadenopathy. CARDIOVASCULAR: Regular rate and rhythm without murmurs, gallops, or rubs. RESPIRATORY: Breath sounds decrease bilaterally. +exp wheezing as well as fines crackles. No accessory muscle use. GASTROINTESTINAL: Abdomen soft, non-tender, nondistended. MUSCULOSKELETAL: No cyanosis, or edema. BACK: Nontender without obvious deformity. No CVA tenderness. Hospital Course Prior to discharge to hospice, patient was treated for 1. Acute respiratory failure secondary to COPD exacerbation END stage COPD? Treated with albuterol nebulizers as needed, LABA, theophylline D/c Solu Medrol and switched to PO prednisone D/c Azithromycin Maintain oxygen saturation above 92% Appreciate input from pulmonary medicine 2. Tobacco abuse: Counseled to quit smoking. Treated with nicotine patch. 3. Lung nodule Not seen on repeat CT pulmonary angiogram. 4. Anxiety, depression: Treated with lorazepam as needed and BuSpar. 5. DVT prophylaxis: Heparin. Pt Condition on Discharge: Fair Discharge Disposition: Hospice/Med Facility Discharge Time: > 30 minutes Discharge Instructions DIET: Follow Instructions for: Heart Healthy Diet Activities you can perform: Regular-No Restrictions Follow up Referrals: PCP Follow-up - 2-3 Days New Medications: Buspirone (Buspirone) 5 Mg Tab 12.5 MG PO Q12HR for Control Anxiety, #60 TAB Theophylline (Theophylline) 80 Mg/15 Ml [place] 100 MG PO Q8H for Breathing Treatment, #30 ML [guaiFENesin ER] () 600 MG TABCR 1200 MG PO BID, #10 Continued Medications: Albuterol 18 GM Inh (Ventolin Hfa 18 GM Inh) 90 Mcg/Act Aer 2 PUFF INH Q4-6H PRN for SHORTNESS OF BREATH, #1 INHALER 0 Refills Albuterol Neb (Albuterol Neb) 2.5 Mg/0.5 Ml Neb 2.5 MG NEB Q4HR NEB PRN for DYSPNEA, EA Note: The Albuterol Sulfate Inhalation Solution is concentrated and must be diluted. Read complete instructions carefully before using. Fluticasone-Vilanterol Inh (Breo Ellipta Inh) 100-25 Mcg/Act Inh Unknown Dose INH DAILY, #1 INHALER 0 Refills Use daily at the same time. Prednisone (Prednisone) 10 Mg Tab 10 MG PO BID, TAB 0 Refills Arnoldo Fitch MD Aug 17, 2017 13:34
[2017-08-18] MEDS ORDERED: predniSONE 20 MG TAB PO SCH (09:00)
== END 2017-08-17 15:38 | disposition hospice, inpatient (51) | DRG 189 ==
LOC: NEPE 05:26 → NEDA 06:49 → N05B 09:32
PROVIDERS: ADMIT Hospitalist; ATTEND Hospitalist
DX: J96.21 Acute and chronic respiratory failure with hypoxia (principal); Z99.81 Dependence on supplemental oxygen; J44.1 Chronic obstructive pulmonary disease with (acute) exacerbation; Z68.1 Body mass index [BMI] 19.9 or less, adult; R91.1 Solitary pulmonary nodule; F17.210 Nicotine dependence, cigarettes, uncomplicated; F41.9 Anxiety disorder, unspecified; F32.9 Major depressive disorder, single episode, unspecified; Z79.52 Long term (current) use of systemic steroids; R63.4 Abnormal weight loss; Z66 Do not resuscitate; Z51.5 Encounter for palliative care
CPT/HCPCS: 36600; 71045; 71275; 80048; 80053; 80198; 82550; 82805; 83880; 84484; 85025; 85610; 85730; 87040; 87804; 93005; 94640; 94664; 96374; 96375; J0456; J1644; J2060; J2270; J2920; J2930; J3475; J7050; J7613; Q9967